=== PATIENT | female | born 1940 | race Caucasian/White ===

== ENCOUNTER 2024-05-05 23:53 | Observation (INO) | payer OTHER, SELFPAY ==
[2024-05-05 20:38] VITALS: BP 133/55; BMI 24.5
[2024-05-05 20:39] VITALS: BP 133/55
[2024-05-05 21:00] VITALS: BP 117/54
[2024-05-05 21:11] LABS: % Basophils 0.3 % (0-2); % Eosinophils 3.3 % (0-6); % Immature Granulocytes 0.3 % (0-0.5); % Monocytes 11.7 % (1.7-9.3); % Neutrophils 61.4 % (42.2-75.2); Absolute Eosinophils 0.2 10^3/uL (0-0.7); Absolute Lymphocytes 1.3 10^3/uL (1.2-3.4); Absolute Monocytes 0.7 10^3/uL (0.1-0.6); Absolute Neutrophils 3.5 10^3/uL (1.4-6.5); Hemoglobin 13.1 g/dL (12.0-16.0); Mean Corp Hgb Conc. 32.8 g/dL (33.0-37.0); Mean Corpuscular Hgb 30.9 pg (27.0-31.0); Mean Corpuscular Volume 94.3 fL (81.0-99.0); Mean Platelet Volume 10.5 fL (7.4-10.4); Nucleated Red Blood Cells % 0 %; Platelet Count 191 10^3/uL (130-400); Red Blood Cell Count 4.24 10^6/uL (4.20-5.40); Red Cell Dist. Width 12.2 % (11.5-14.5); White Blood Cell Count 5.7 10^3/uL (4.8-10.8)
[2024-05-05 21:26] LABS: ALT (SGPT) 13 U/L (0-35); AST (SGOT) 20 U/L (14-36); Albumin 4.2 g/dl (3.5-5.0); Alkaline Phosphatase 66 U/L (38-126); Blood Urea Nitrogen 19 mg/dl (7-17); Calcium 9.6 mg/dl (8.4-10.2); Carbon Dioxide 29 mmol/L (22-30); Chloride 103 mmol/L (98-107); Estimated Creatinine Clearance 45 ml/min; Glucose 109 mg/dl (70-99); Potassium 4.2 mmol/L (3.5-5.1); Sodium 142 mmol/L (135-145); Total Bilirubin 0.5 mg/dl (0.2-1.3); Total Protein 6.6 g/dl (6.3-8.2); eGFR > 60.00
[2024-05-05 22:00] VITALS: BP 121/46
--- NOTE | 2024-05-05 22:43 | ED.GENMED ---
History of Present Illness
General
Chief Complaint: Weakness
Source: patient
Time Seen by Provider: 05/05/24 21:51
History of Present Illness
History of Present Illness:
83-year-old female with past medical history of hypertension, hyperlipidemia, GERD, previous TIA presenting to the emergency department for evaluation of generalized weakness which she reports started this evening stating she was attempting to walk
from her kitchen to the living room and felt as if she was going to fall but notes she did not experience a fall. Patient notes she was concerned because a few years ago she had a significant fall which result with her being on the ground for 4
days and 4 nights until she was ultimately found and required hospitalization. Patient notes that she often uses a walker or assistive device when she is out of the house but states that normally she does not need this while in her apartment.
Patient denies any fevers or infectious symptoms but does state she has had a little bit of urinary frequency over the last couple of days. Patient denies any focal symptoms
Past History
Past History
ED Past Medical History: Cancer (squamous cell carcinoma 2020), GERD, HTN, Hypercholesterolemia, Psychiatric (Gen anxiety D/O) and Other (TMJ syndrome, MVP, Emphysema, Osteoarthritis)
ED Past Surgical History: Appendectomy, Gynecological (Hysterectomy, bilateral tubal ligation) and Other (Multiple abdominal surgeries, root canal 2019)
Patient has exhibited threatening behavior?: No
PSI?: No
Social History
Tobacco: Non-smoker
Alcohol: None
Drug: None
Personal:
Living: alone
Family History
Family History: Other (reviewed and non-contributory)
Review of Systems
Review of Systems
All Other Systems: ROS reviewed and negative except as documented in HPI and ROS
Phy Exam
Physical Exam
Physical Exam:
GENERAL: Alert , in no apparent distress
HEAD: NCAT
EYE: clear conjunctiva
NECK: Supple
ENT: mmm.
CARDIAC: Regular rate and rhythm .
LUNGS: Clear breath sounds bilaterally, no acute respiratory distress, no wheezes/rales/rhonchi
ABDOMEN: Soft, without focal tenderness, no r/g, no cvat
NEUROLOGICAL: Alert and oriented
SKIN: Warm and dry, skin intact.
MUSCULOSKELETAL: No edema, well perfused. Patient having a difficult time holding both legs up off of the bed and when assisted and holding leg up patient's legs fall down to the bed immediately on bilateral sides
PSYCH: Normal and appropriate interaction.
Scores
Heart Failure Risk
Heart Failure Risk Score: Not Applicable
Heart Score for Chest Pain Patients
STEMI patient?: Not applicable
Withdrawal Assessment of Alcohol
Withdrawal Assessment Completed?: Not applicable
Course
Orders/Labs/Results
Orders:
Orders
05/05/24 20:54
Complete Blood Count/With Diff Urgent
Comprehensive Metabolic Panel Urgent
05/05/24 21:58
Electrocardiogram (*1) Urgent
Reason for Study: Fatigue / Weakness
EKG- Treatment ONCE
Urinalysis Reflex To Culture Urgent
05/05/24 23:52
COVID-19 Antigen Urgent
Source: Nasal Swab
Influenza A+B Rapid Molecular Urgent
TONYA Source: Nasal Swab
Specimen Description:
05/05/24 23:53
Admit/Transfer Patient As Directed
Co-Sign Provider:
Level of Care: Observation services
Assign to:: Telemetry
Physician / Group: Mendoza
Diagnosis: Weakness, Ambulatory Dysfunction
Reason for Telemetry: CVA/TIA
Date to Stop Telemetry: 05/08/24
Time to Stop Telemetry: 11:00
PRN Pain Medication Management As Directed
May give lesser potent ordered pain med per pt: Yes
preference::
Protocol:: Medication orders for pain may be administered in a
manner that supports deferring to patient preference
when the pt is:
- Requesting an ordered lesser potent pain medication.
Least to most potent pain medications are defined
as: acetaminophen < NSAID < tramadol < opioids
(morphine, oxycodone, hydromorphone).
- Requesting a lesser dose of the same medication IF
ORDERED.
- Requesting a less intrusive route of administration
if both routes are prescribed by the provider (PO <
IV).
05/05/24 23:54
Code Status As Directed
Resuscitation Status: Do not resuscitate
Reached after discussion with pt or family/Healthcare POA: Yes
05/05/24 23:55
DNR Bracelet Application ONCE
05/08/24 11:00
DC Protocol for Telemetry ONCE
Abnormal Lab Results
05/05/24
20:54
MCHC 32.8 L g/dL
(33.0-37.0)
MPV 10.5 H fL
(7.4-10.4)
Absolute Monos (auto) 0.7 H 10^3/uL
(0.1-0.6)
Monocytes % 11.7 H %
(1.7-9.3)
BUN 19 H mg/dl
(7-17)
Glucose 109 H mg/dl
(70-99)
05/05/24 20:54
05/05/24 20:54
Vital Signs
Initial and Last Documented VS:
Initial Vital Signs
Temp Pulse Resp BP Pulse Ox
99.1 F 78 18 133/55 95
05/05/24 20:38 05/05/24 20:38 05/05/24 20:38 05/05/24 20:38 05/05/24 20:38
Last Documented Vital Signs
Temp Pulse Resp BP Pulse Ox
99.1 F 77 16 110/42 98
05/05/24 20:38 05/05/24 23:45 05/05/24 23:15 05/05/24 23:00 05/05/24 23:45
MDM/Problems Addressed
Differential Diagnosis Includes:
Urinary tract infection, deconditioning, electrolyte derangement, anemia, given bilateral nature of symptoms I do not have any concern for an acute neurologic event
MDM/Problems Addressed:
83-year-old female presenting to the ER for evaluation of generalized weakness, had a near fall but patient states she never did fall. Lives on her own. Hemodynamically patient is stable. Labs, urine and EKG ordered. At present time patient is
unable to get up out of bed and stand on her own. Given that she lives on her own and is a fall risk she may require admission for PT and possible rehab placement.
*Pulse Oximetry
Patient hypoxic: no
*Critical Care Note
Total Time (30-74mins, 75-104mins- exclusive of procedures): Not Applicable
Data Reviewed
Review of Other/Old Records Reveals: Labs and Records
Patient Management
Social determinants of health affecting care: Living situation and Poor social support
Discussion with other providers: Hospitalist
Escalation/DeEscalation of care consider admission/obs:
Patient unable to get up out of bed on her own. Given that she lives by herself, has had significant falls in the past and unable to ambulate here I do not feel comfortable sending the patient home. Will admit for further evaluation, anticipate
physical therapy consult and possibly case management. Patient may require rehab facility until able to ambulate at her baseline.
ED Attending Note
-
Portions of this chart may have been created with voice recognition software.� Occasional wrong word or��sound alike� substitutions may have occurred due to the inherent limitations of voice recognition software.
Discharge Plan
Departure
Patient Disposition: Admit
Date of Disposition: 05/05/24
Time of Disposition: 23:20
Presentation/result/management discussed w/ accepting MD/DO: Hospitalist
Discharge Problem:
Generalized weakness
Prescriptions:
No Action
famotidine 40 MG tablet
40 mg PO HS Qty: 0 0RF
Rx Instructions:
One tab by mouth at bedtime daily.
ferrous sulfate [FeroSul] 325 MG tablet
325 mg PO DAILY
multivitamin with folic acid [Tab-A-Nathaniel] 1 TABLET tablet
1 tab PO DAILY
[place]-3 Plus Vitamin D3 1 EACH capsule,delayed release(DR/EC)
1 ea PO BID
aspirin 81 MG tablet,delayed release (DR/EC)
81 mg PO HS Qty: 0 0RF
Rx Instructions:
One tab by mouth daily.
metoprolol tartrate 50 MG tablet
50 mg PO HS Qty: 0 0RF
Rx Instructions:
One tab by mouth every evening.
acetaminophen 650 mg Tablet Extended Release
650 mg PO BID
omeprazole 40 MG capsule,delayed release(DR/EC)
40 mg PO BID
Referrals:
Matias Suarez MD [Family Provider] -
Interventions
Interventions:
*Risk Screen - Suicide Last Done: 05/05/24 20:38
*General Assessment Last Done: 05/05/24 20:38
*Neglect/Abuse Screening Last Done: 05/05/24 20:38
ED- Fall Risk Assessment Last Done: 05/05/24 20:51
*ED COVID-19 Vaccine History Last Done: 05/05/24 20:49
ED- Cardiac Assessment Last Done: 05/05/24 20:49
ED- Neurological Assessment Last Done: 05/05/24 20:49
ED- Pulmonary Assessment Last Done: 05/05/24 20:49
Discharge Date and Time
Print Language: GAMBIAN
[2024-05-05 23:00] VITALS: BP 110/42
[2024-05-06] VITALS (11 sets, daily range): BP systolic 90–166; BP diastolic 50–87; PULSE 75–121; BMI 25.8
--- NOTE | 2024-05-06 00:04 | HPS.HSE ---
Family Physician
-
Family Physician: Matias Suarez
Chief Complaint
-
Weakness
History of Present Illness
Patient is an 83y F with PMH significant for hypertension, COPD and depression who presents to ED complaining of weakness. Patient states that she had a significant fall about one year ago. She was hospitalized here at that time and then
subsequently went to SNF. Patient notes that she has had continued gait abnormality since that time. She describes episodes of knees and ankles 'giving out'. She denies any actual fall, injury or trauma. Patient notes that she has lost about 100
lbs in the past year. She states that she has very little appetite. She denies any associated symptoms such as fevers / chills, sore throat, difficulty swallowing, N/V/D, etc.
Patient states that she typically sleeps for most of the day and is generally quite inactive.
Patient off-handedly states that she is not able to cut her food up due to RUE weakness. She states that this has been present for about 2 weeks or so. She also noted weakness in the R > L LE and notes that she manually moves her legs in bed when
rolling over / repositioning.
Today, patient became very concerned that she would suffer another fall. She states that she was completely unable to get out of bed.
Medical History
Past Medical History
Past Medical History: Reports Other
Additional Past Medical History:
Hypertension
COPD
Anxiety / Depression
GERD / Hiatal Hernia
Past Surgical History: Reports Other
Additional Past Surgical History:
MARCUS / BSO
Appendectomy
Skin Cancer Excision
Ex Lap
Social History
Tobacco: Non-smoker
Alcohol: None
Drug: None
Living: Other ([facility])
Family History
Family History: Not pertinent
Allergies / Home Medications
Allergies reflects when Allergies were last updated in [facility].
Home Medications with original date entered in [facility]
Allergy/Medication List:
Allergies
Patient reports allergy to 'inhalers' and notes multiple instances of hallucinations with inhaled medications via MDI.
States that she can take inhaled meds 'but not through the inhaler'.
Suspect allergy is to anticholinergic component - but not verified.
Allergy/AdvReac Type Severity Reaction Status Date / Time
cat dander Allergy Unknown Unknown Verified 05/05/24 20:35
levofloxacin [From Levaquin] Allergy LOW Verified 05/05/24 20:35
BP,FAST
HR,DIZZINESS
spironolactone Allergy Unknown Verified 05/05/24 20:35
anesthesia med Allergy LOW Uncoded 05/05/24 20:35
BP,FAST
HR,DIZZINESS
Home Medications
famotidine 40 mg tablet 40 mg PO HS #0 tabs 08/24/13
ferrous sulfate 325 mg (65 mg iron) tablet (FeroSul) 325 mg PO DAILY Supplement 07/04/21
multivitamin with folic acid 400 mcg tablet (Tab-A-Nathaniel) 1 tab PO DAILY Supplement 07/04/21
omega-3 150 ra-cjh-kdg-fish oil 500 mg-D3 200 unit capsule,delayed rel ([place]-3 Plus Vitamin D3) 1 ea PO BID Supplement 07/04/21
aspirin 81 mg tablet,delayed release 81 mg PO HS Blood clot prevention/tx ##0 07/08/21
metoprolol tartrate 50 mg tablet 50 mg PO HS Heart disease/condition ##0 07/08/21
acetaminophen 650 mg tablet,extended release 650 mg PO BID Pain 12/26/22
omeprazole 40 mg capsule,delayed release 40 mg PO DAILY 12/26/22
Review of Systems
-
History Source: Patient
A 12 point ROS was completed and negative except as noted: Yes
Constitutional: Reports Weight Loss and Fatigue; Denies Fever or Chills
EENT: Denies Sore Throat
Respiratory: Denies Cough or Trouble Breathing
Cardiac: Denies Chest Pain or Palpitations
Abdomen/GI: Reports Anorexia; Denies Abdominal Pain, Nausea, Vomiting, Diarrhea, Bloody Stools or Black Stools
: Reports Frequency; Denies Dysuria, Flank Pain or Incontinence
Musculoskeletal: Denies Joint Pain, Muscle Pain or Edema
Neurological: Reports Weakness; Denies Dizzy, Headache or Numbness
Psych: Denies Depression or Anxiety
Physical Exam
Vital Signs
Vital Signs
Temp Pulse Resp BP Pulse Ox
99.1 F 77 16 110/42 98
05/05/24 20:38 05/05/24 23:45 05/05/24 23:15 05/05/24 23:00 05/05/24 23:45
Physical Exam
General: Other (83y F in no acute distress.)
HEENT: Moist mucous membranes and PERRLA
Respiratory: Clear; No Wheezes, Rales or Rhonchi
Cardiac: S1/S2 and Regular Rhythm; No Murmur
GI: Soft, Non Tender, Non Distended and Normal Bowel Sounds
Musculoskeletal: No Clubbing, No Cyanosis and No Edema
Neuro: AO x 3 and Other (Proximal muscle weakness in b/l LEs with no significant asymmetry. Minimal SLR capability. No evident sensory deficits. No apparent RUE weakness despite report.)
Laboratory Results
-
05/05/24 20:54
05/05/24 20:54
Laboratory Results
Total Bilirubin 0.5 mg/dl (0.2-1.3) 05/05/24 20:54
AST 20 U/L (14-36) 05/05/24 20:54
ALT 13 U/L (0-35) 05/05/24 20:54
Alkaline Phosphatase 66 U/L (38-126) 05/05/24 20:54
Impression/Plan
-
A/P: Patient is an 83y F with PMH significant for hypertension, GERD and COPD who presents to ED complaining of weakness / gait dysfunction.
Weakness
Ambulatory Dysfunction
- Observe overnight for further evaluation and treatment.
- Symptoms seem quite long-standing with instability / gait issues x 1 year.
- Patient reports newer R sided weakness in the past few weeks.
- Check MR brain to rule out subacute CVA (no urgent / acute symptoms).
- PT / OT evaluations.
- Neurology evaluation for additional recommendations.
- Check ESR, CPK, etc.
Weight Loss
- Patient reports 100 lbs weight loss over the past year with decreased appetite.
- Concerning for underlying process.
- Check TFTs.
- Check CXR.
- Nutrition / dietary evaluation.
- Patient states that she was up to date with all routine cancer screenings prior to age 81.
Benign Hypertension
- Stable. Continue metoprolol with holding parameters.
COPD without Acute Exacerbation
- Stable. Not on any maintenance medications.
- Albuterol (nebs only) PRN.
- Follow for any new symptoms.
GERD / Hiatal Hernia
- Stable. Continue acid-suppression regimen.
DVT Prophylaxis: SCDs
Code Status: DNR
[2024-05-06 00:17] LABS: COVID-19 Antigen Negative (Negative)
[2024-05-06 02:48] LABS: Creatine Phosphokinase 33 U/L (30-135)
[2024-05-06 03:22] LABS: TSH Reflex To Free T4 1.14 uIU/ml (0.47-4.68)
[2024-05-06 03:57] LABS: Erythrocyte Sed Rate 18 mm/hour (0-20)
--- NOTE | 2024-05-06 04:49 | PTCARENOTE ---
0200 Received patient from ED via stretcher w/ belongings. Patient admitted for weakness, ambulatory dysfunction. Observation status. Telemetry order> NSR on monitor. VSS> afebrile, HR 75, RR 18, BP 138/87, pox 98% room air. No c/o pain. AAOx2-3
(time), [place] PASS. Patient states she is forgetful at times. Neuro checks Q4H ordered. patient is weak in her LEs; c/o numbness in her legs/feet 'for the past few months' NIH 0. Unable to obtain orthostatic VS d/t weakness. PT/OT ordered. Patient lives
alone at [facility], utilizes a RW. Patient states she has lost a significant amount of weight in the past year. Dietary ordered. Abd soft, non-tender. Last BM was Tuesday.
PMH and medications reviewed by this RN and patient. Plan of care discussed. Patient ordered an MRI brain and CR chest.
[2024-05-06 07:51] LABS: % Basophils 0.8 % (0-2); % Eosinophils 4.1 % (0-6); % Immature Granulocytes 0.2 % (0-0.5); % Lymphocytes 30.9 % (20.5-51.1); % Monocytes 11.3 % (1.7-9.3); % Neutrophils 52.7 % (42.2-75.2); Absolute Eosinophils 0.2 10^3/uL (0-0.7); Absolute Lymphocytes 1.5 10^3/uL (1.2-3.4); Absolute Monocytes 0.6 10^3/uL (0.1-0.6); Absolute Neutrophils 2.6 10^3/uL (1.4-6.5); Hematocrit 39.8 % (37.0-47.0); Mean Corp Hgb Conc. 32.7 g/dL (33.0-37.0); Mean Corpuscular Hgb 31.5 pg (27.0-31.0); Mean Corpuscular Volume 96.4 fL (81.0-99.0); Mean Platelet Volume 11.4 fL (7.4-10.4); Nucleated Red Blood Cells % 0 %; Platelet Count 181 10^3/uL (130-400); Red Blood Cell Count 4.13 10^6/uL (4.20-5.40); Red Cell Dist. Width 12.3 % (11.5-14.5); White Blood Cell Count 4.9 10^3/uL (4.8-10.8)
[2024-05-06 08:09] LABS: Blood Urea Nitrogen 20 mg/dl (7-17); Calcium 9.5 mg/dl (8.4-10.2); Carbon Dioxide 28 mmol/L (22-30); Chloride 105 mmol/L (98-107); Estimated Creatinine Clearance 50 ml/min; Glucose 96 mg/dl (70-99); HDL Cholesterol 50 mg/dl; LDL Cholesterol, Calculated 117 mg/dl; Sodium 142 mmol/L (135-145); Total Cholesterol 188 mg/dl (50-199); Triglyceride 105 mg/dl (10-149); Very Low Density Lipoprotein 21 mg/dl (0-30); eGFR > 60.00
[2024-05-06] MEDS: PROTONIX 40 MG PO (08:35)
[2024-05-06] MEDS: THERAGRAN 1 TABLET PO (08:35)
--- NOTE | 2024-05-06 09:15 | CON.NEURO ---
Consultation
Order
Date of Consultation: 05/06/24
Requesting Provider: Qasim Donaldson DO
Reason for Consult: Right hand weakness.
Neurology Consultation Note.
HPI: This is an 83-year-old RH woman who presented to [facility] on 05/05/2024 with 2 weeks of right hand weakness.
According to the patient she has had progressive change in gait (shuffling, imbalance as well as stiffness with associated bradykinesia's and hand tremor over the last 1-1/2 years.
Ms. Dunaway has had difficulties with dressing, cutting food and handling utensils as well as loss of appetite leading to 100 pound weight loss over the last year. There is admits to intermittent dysphagia to food and sialorrhea.
She has had intermittent visual hallucinations and denied having anosmia or ageusia. Ms. Dunaway lives alone and manages her medications independently but receives assistance with food shopping and driving.
ER VS: 133/55, 78, afebrile, 98% on room air
EKG:NSR, QTc Int : 467 ms
PDMP: Alprazolam 0.25 Mg 60 tablets filled in on 12/13/2023.
Labs: Glucose�109, normal CK, Na, WBCs, creatinine, TSH, protein, LDL�117, negative COVID.
Brain MRI without conner (12/29/2022)�chronic right cerebellar hemisphere infarct, right [id number] mm choroidal fissure cyst, subcortical white matter disease, generalized atrophy,
Cervical CT(12/26/2022) no significant stenosis
PMH: HTN, CHF, COPD, ambulatory dysfunction, hiatal hernia, GERD MDD, CONNER
PSH: Bilateral cataract surgery, appendectomy, hysterectomy, exploratory laparotomy
SH: lives in alone in independent living (senior housing); ambulates with a walker, does not drive, takes medications independently, retired medical lab scientist, no history of excessive alcohol use has 3 children
FH: Father�autism, mother�developed dementia in her late 70s.
All: Spironolactone, Levaquin
ROS:Constitutional: Positive for 100 pound weight loss over the last year.
HENT: Negative for ear pain, hearing loss, tinnitus and trouble swallowing.
Eyes: Negative. Negative for photophobia, pain and visual disturbance.
Respiratory: Negative for cough, choking and shortness of breath.
Cardiovascular: Positive for lightheadedness.
Gastrointestinal: Positive for poor appetite, intermittent sialorrhea.
Endocrine: Negative. Negative for cold intolerance.
Genitourinary: Positive for urinary urgency, incontinence (wears pads)
Musculoskeletal: Negative for back pain, gait problem, neck pain and neck stiffness.
Skin: Negative for rash.
Allergic/Immunologic: Negative. Negative for immunocompromised state.
Neurological: Negative for frequent akinesia, imbalance, hand tremor
Psychiatric/Behavioral: Positive for visual hallucinations
General: Slim, masked facies.
Cardio: Regular rate and rhythm . Extremities are without cyanosis or edema.
Neuro:
Mental Status: Alert, oriented to person, place, and date. Preserved attention and impaired comprehension. Able to do serial 7s. Nonfluent. Follows complex requests across midline. Delayed recall�impaired.
Cranial Nerves: Pupils are equally round, surgical. EOMs full, except of upper and downgaze.. Visual roberts full to confrontation. No ptosis. No nystagmus. V1-V3 intact to light touch and pinprick bilaterally, symmetric. Face symmetric.
Impaired hearing AU. The palate elevated well. SCMs and traps 5/5. Tongue midline. No dysarthria. Mild dysphonia.
Motor: Increased motor tone in upper and lower extremities. All limbs are antigravity symmetrically purposeful.
Reflexes: 3+ in upper extremities, limited exam lower extremities. Grasp present bilateral.
Sensory: Absent vibration at the toes, ankles and preserved at the knees.
Coordination: Normal fine finger movements. No dysmetria, mild action hand tremor.
Gait: deferred
Special tests�positive, micrographia.
Assessment and Plan:
I. Parkinsonism.
II. Encephalopathy, likely mixed(vascular, neurodegenerative).
III. Distal symmetric large fiber polyneuropathy.
IV. Chronic right cerebellar hemisphere infarct
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
-Fall precautions
-Please obtain orthostatic vital signs
-Avoid dopamine blocking agents
-PT, OT
-Sinemet trial
-Continue aspirin 81 mg once a day for stroke prophylaxis.
-LDL goal<100
-Check vitamin B12, folate, thiamine, SPEP.
-OP [place] scan
-Follow-up brain MRI report.
-DVT prophylaxis
I personally reviewed all radiology and labs along with past medical records pertinent to current medical problems. Total time spent in patient care is 60 minutes.
Thank you for allowing us to participate in the care of this patient. We will continue to follow. Please do not hesitate to contact us with any questions or concerns.
Subjective/Objective
Subjective Data
Date of Service: May 06, 2024
Objective Data
Vital Signs
Temp Pulse Resp BP Pulse Ox
36.7 C 77 18 166/82 98
05/06/24 07:00 05/06/24 07:00 05/06/24 07:00 05/06/24 07:00 05/06/24 07:00
Lab Results
05/06/24 06:00
05/06/24 06:00
Sodium Cancelled 05/06/24 06:00
Potassium Cancelled 05/06/24 06:00
BUN Cancelled 05/06/24 06:00
Glucose Cancelled 05/06/24 06:00
Calcium Cancelled 05/06/24 06:00
LDL Cholesterol, Calc Cancelled 05/06/24 06:00
Patient Allergies
cat dander Allergy (Unknown, Verified 05/05/24 20:35)
Unknown
levofloxacin [From Levaquin] Allergy (Verified 05/05/24 20:35)
LOW BP,FAST HR,DIZZINESS
spironolactone Allergy (Verified 05/05/24 20:35)
Unknown
anesthesia med Allergy (Uncoded 05/05/24 20:35)
LOW BP,FAST HR,DIZZINESS
Medications
-
Active Medications
Generic Name Dose Route Start Last Admin
Trade Name Freq PRN Reason Stop Dose Admin
Acetaminophen 650 mg 05/06/24 01:58
Acetaminophen 325 Mg Tablet PO 06/03/24 01:57
Q4HPRN PRN
Mild Pain / Temp > 101
Albuterol Sulfate 2.5 mg 05/06/24 01:58
Albuterol Nebs 2.5 Mg/3 Ml Ampul INH
R Q4HPRN PRN
SOB
Protocol
Aspirin 81 mg 05/06/24 22:00
Aspirin 81 Mg (Enteric Coated) Tablet PO 06/03/24 21:59
HS VANESSA
Famotidine 40 mg 05/06/24 22:00
Famotidine 40 Mg Tablet PO 06/03/24 21:59
HS VANESSA
Metoprolol Tartrate 50 mg 05/06/24 22:00
Metoprolol 50 Mg Regular Release Tablet PO 06/03/24 21:59
HS VANESSA
Multivitamins Therapeutic 1 tablet 05/06/24 08:00 05/06/24 08:35
Multivitamin Tablet PO 06/03/24 07:59 1 tablet
DAILY VANESSA Administration
Pantoprazole Sodium 40 mg 05/06/24 08:00 05/06/24 08:35
Pantoprazole 40 Mg Delayed Release Tablet PO 06/03/24 07:59 40 mg
DAILY VANESSA Administration
Home Medications
�Medication �Instructions �Recorded
famotidine 40 mg tablet 40 mg PO HS #0 tabs 08/24/13
ferrous sulfate 325 mg (65 mg 325 mg PO DAILY Supplement 07/04/21
iron) tablet (FeroSul)
multivitamin with folic acid 400 1 tab PO DAILY Supplement 07/04/21
mcg tablet (Tab-A-Nathaniel)
omega-3 150 ii-uvb-zjn-fish oil 1 ea PO BID Supplement 07/04/21
500 mg-D3 200 unit capsule,delayed
rel ([place]-3 Plus Vitamin D3)
aspirin 81 mg tablet,delayed 81 mg PO HS Blood clot 07/08/21
release prevention/tx ##0
metoprolol tartrate 50 mg tablet 50 mg PO HS Heart 07/08/21
disease/condition ##0
acetaminophen 650 mg 650 mg PO BID Pain 12/26/22
tablet,extended release
omeprazole 40 mg capsule,delayed 40 mg PO DAILY 12/26/22
release
Vital Signs and Labs
-
Vital Signs and Labs:
Vital Signs
Temp Pulse Resp BP Pulse Ox
36.7 C 77 18 166/82 98
05/06/24 07:00 05/06/24 07:00 05/06/24 07:00 05/06/24 07:00 05/06/24 08:35
Lab Results
05/06/24 06:00
05/06/24 06:00
Sodium Cancelled 05/06/24 06:00
Potassium Cancelled 05/06/24 06:00
BUN Cancelled 05/06/24 06:00
Glucose Cancelled 05/06/24 06:00
Calcium Cancelled 05/06/24 06:00
LDL Cholesterol, Calc Cancelled 05/06/24 06:00
Medications
-
Medications:
Generic Name Dose Route Start Last Admin
Trade Name Freq PRN Reason Stop Dose Admin
Acetaminophen 650 mg 05/06/24 01:58
Acetaminophen 325 Mg Tablet PO 06/03/24 01:57
Q4HPRN PRN
Mild Pain / Temp > 101
Albuterol Sulfate 2.5 mg 05/06/24 01:58
Albuterol Nebs 2.5 Mg/3 Ml Ampul INH
R Q4HPRN PRN
SOB
Protocol
Aspirin 81 mg 05/06/24 22:00
Aspirin 81 Mg (Enteric Coated) Tablet PO 06/03/24 21:59
HS VANESSA
Famotidine 40 mg 05/06/24 22:00
Famotidine 40 Mg Tablet PO 06/03/24 21:59
HS VANESSA
Metoprolol Tartrate 50 mg 05/06/24 22:00
Metoprolol 50 Mg Regular Release Tablet PO 06/03/24 21:59
HS VANESSA
Multivitamins Therapeutic 1 tablet 05/06/24 08:00 05/06/24 08:35
Multivitamin Tablet PO 06/03/24 07:59 1 tablet
DAILY VANESSA Administration
Pantoprazole Sodium 40 mg 05/06/24 08:00 05/06/24 08:35
Pantoprazole 40 Mg Delayed Release Tablet PO 06/03/24 07:59 40 mg
DAILY VANESSA Administration
Home Medications
-
Home Medications
famotidine 40 mg tablet 40 mg PO HS #0 tabs 08/24/13
ferrous sulfate 325 mg (65 mg iron) tablet (FeroSul) 325 mg PO DAILY Supplement 07/04/21
multivitamin with folic acid 400 mcg tablet (Tab-A-Nathaniel) 1 tab PO DAILY Supplement 07/04/21
omega-3 150 ri-bsz-xri-fish oil 500 mg-D3 200 unit capsule,delayed rel ([place]-3 Plus Vitamin D3) 1 ea PO BID Supplement 07/04/21
aspirin 81 mg tablet,delayed release 81 mg PO HS Blood clot prevention/tx ##0 07/08/21
metoprolol tartrate 50 mg tablet 50 mg PO HS Heart disease/condition ##0 07/08/21
acetaminophen 650 mg tablet,extended release 650 mg PO BID Pain 12/26/22
omeprazole 40 mg capsule,delayed release 40 mg PO DAILY 12/26/22
[2024-05-06 10:30] LABS: Urine Albumin Negative (Neg - Trace); Urine Bilirubin Negative (Negative); Urine Character Clear (Clear); Urine Color Yellow; Urine Glucose Negative (Negative); Urine Ketone Negative (Negative); Urine Leukocyte Negative (Negative); Urine Nitrite Negative (Negative); Urine Occult Blood Negative (Negative); Urine Urobilinogen Negative (Neg - 1+)
[2024-05-06 13:56] LABS: Folate > 20.0 ng/ml (2.76-20); Vitamin B12 636 pg/ml (239-931)
[2024-05-06] MEDS: SINEMET 25-100 1 TABLET PO ×2 (15:45→21:18)
--- NOTE | 2024-05-06 16:12 | CM ---
or manager reviewed patient's chart and met with patient and patient was admitted under OBS, PARSONS letter provided to patient and signed and placed on chart. Patient lives alone at [facility] on 5th floor, patient is independent with
adl's and ambulation, patient occasionally uses a cane or walker.
PCP: Dr. Suarez
Pharmacy: [facility]
Plan; Needs PT/OT evaluations to assist with discharge planning.
[2024-05-06] MEDS: ASPIR LOW (ENTERIC COATED) 81 MG PO (21:17)
[2024-05-06] MEDS: LOPRESSOR 50 MG PO (21:17)
[2024-05-06] MEDS: PEPCID 40 MG PO (21:17)
[2024-05-07] VITALS (8 sets, daily range): BP systolic 72–146; BP diastolic 48–72; PULSE 71–89; BMI 26.2
[2024-05-07] MEDS: SINEMET 25-100 1 TABLET PO ×3 (08:56→21:24)
[2024-05-07] MEDS: PROTONIX 40 MG PO (08:56)
[2024-05-07] MEDS: THERAGRAN 1 TABLET PO (08:56)
--- NOTE | 2024-05-07 12:22 | W.PN.NEURO.1 ---
Today's Communication / Plan
-
.
Subjective/Objective
Subjective Data
Date of Service: May 07, 2024
Neurology follow-up note
Ms. Busch endorses ongoing right hand weakness. She tolerates Sinemet well. No change in visual hallucinations since Sinemet therapy started. Brain MRI showed no acute infarcts.
PMH: HTN, CHF, COPD, ambulatory dysfunction, hiatal hernia, GERD MDD, CONNER
PSH: Bilateral cataract surgery, appendectomy, hysterectomy, exploratory laparotomy
SH: lives in alone in independent living (senior housing); ambulates with a walker, does not drive, takes medications independently, retired medical data entry clerk, no history of excessive alcohol use has 3 children
FH: Father�autism, mother�developed dementia in her late 70s.
All: Spironolactone, Levaquin
ROS:Constitutional: Positive for 100 pound weight loss over the last year.
HENT: Negative for ear pain, hearing loss, tinnitus and trouble swallowing.
Eyes: Negative. Negative for photophobia, pain and visual disturbance.
Respiratory: Negative for cough, choking and shortness of breath.
Cardiovascular: Positive for lightheadedness.
Gastrointestinal: Positive for poor appetite, intermittent sialorrhea.
Endocrine: Negative. Negative for cold intolerance.
Genitourinary: Positive for urinary urgency, incontinence (wears pads)
Musculoskeletal: Negative for back pain, gait problem, neck pain and neck stiffness.
Skin: Negative for rash.
Allergic/Immunologic: Negative. Negative for immunocompromised state.
Neurological: Negative for frequent akinesia, imbalance, hand tremor
Psychiatric/Behavioral: Positive for visual hallucinations
General: Slim, masked facies.
Cardio: Regular rate and rhythm . Extremities are without cyanosis or edema.
Neuro:
Mental Status: Alert, oriented to person, place, and date. Preserved attention and impaired comprehension. Able to do serial 7s. Nonfluent. Follows complex requests across midline. Delayed recall�impaired.
Cranial Nerves: Pupils are equally round, surgical. EOMs full, except of upper and downgaze.. Visual roberts full to confrontation. No ptosis. No nystagmus. V1-V3 intact to light touch and pinprick bilaterally, symmetric. Face symmetric.
Impaired hearing AU. The palate elevated well. SCMs and traps 5/5. Tongue midline. No dysarthria. Mild dysphonia.
Motor: Increased motor tone in upper and lower extremities. All limbs are antigravity symmetrically purposeful.
Reflexes: 3+ in upper extremities, limited exam lower extremities. Grasp present bilateral.
Sensory: Absent vibration at the toes, ankles and preserved at the knees.
Coordination: Normal fine finger movements. No dysmetria, mild action hand tremor.
Gait: deferred
Special tests�positive, micrographia.
Assessment and Plan:
I. 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
II. Encephalopathy, likely mixed(vascular, neurodegenerative).
III. Distal symmetric large fiber polyneuropathy.
IV. Chronic right cerebellar hemisphere infarct
V. Right [id number] mm choroidal fissure cyst
-Fall precautions
-Avoid dopamine blocking agents
-PT, OT
-Continue Sinemet 24/101 tablet 3 times daily
-Continue aspirin 81 mg once a day for stroke prophylaxis.
-LDL goal<100
-Check vitamin B12, folate, thiamine, SPEP.
-OP [place] scan
-DVT prophylaxis
-Outpatient neurology follow-up in 1-2 weeks.
I personally reviewed all radiology and labs along with past medical records pertinent to current medical problems. Total time spent in patient care is 40 minutes.
Thank you for allowing us to participate in the care of this patient. Please do not hesitate to contact us with any questions or concerns.
Objective Data
Vital Signs
Temp Pulse Resp BP Pulse Ox
36.3 C 67 18 117/59 95
05/07/24 11:43 05/07/24 11:43 05/07/24 11:43 05/07/24 11:43 05/07/24 11:43
Lab Results
05/06/24 06:00
05/06/24 06:00
Sodium Cancelled 05/06/24 06:00
Potassium Cancelled 05/06/24 06:00
BUN Cancelled 05/06/24 06:00
Glucose Cancelled 05/06/24 06:00
Calcium Cancelled 05/06/24 06:00
LDL Cholesterol, Calc Cancelled 05/06/24 06:00
Whole Bld Vitamin B1 Cancelled 05/06/24 12:14
Vitamin B12 Cancelled 05/06/24 12:14
Patient Allergies
cat dander Allergy (Unknown, Verified 05/05/24 20:35)
Unknown
levofloxacin [From Levaquin] Allergy (Verified 05/05/24 20:35)
LOW BP,FAST HR,DIZZINESS
spironolactone Allergy (Verified 05/05/24 20:35)
Unknown
anesthesia med Allergy (Uncoded 05/05/24 20:35)
LOW BP,FAST HR,DIZZINESS
Vital Signs and Labs
-
Vital Signs and Labs:
Vital Signs
Temp Pulse Resp BP Pulse Ox
36.3 C 67 18 117/59 95
05/07/24 11:43 05/07/24 11:43 05/07/24 11:43 05/07/24 11:43 05/07/24 11:43
Lab Results
05/06/24 06:00
05/06/24 06:00
Sodium Cancelled 05/06/24 06:00
Potassium Cancelled 05/06/24 06:00
BUN Cancelled 05/06/24 06:00
Glucose Cancelled 05/06/24 06:00
Calcium Cancelled 05/06/24 06:00
LDL Cholesterol, Calc Cancelled 05/06/24 06:00
Whole Bld Vitamin B1 Cancelled 05/06/24 12:14
Vitamin B12 Cancelled 05/06/24 12:14
Medications
-
Medications:
Generic Name Dose Route Start Last Admin
Trade Name Freq PRN Reason Stop Dose Admin
Acetaminophen 650 mg 05/06/24 01:58
Acetaminophen 325 Mg Tablet PO 06/03/24 01:57
Q4HPRN PRN
Mild Pain / Temp > 101
Albuterol Sulfate 2.5 mg 05/06/24 01:58
Albuterol Nebs 2.5 Mg/3 Ml Ampul INH
R Q4HPRN PRN
SOB
Protocol
Aspirin 81 mg 05/06/24 22:00 05/06/24 21:17
Aspirin 81 Mg (Enteric Coated) Tablet PO 06/03/24 21:59 81 mg
HS VANESSA Administration
Carbidopa/Levodopa 1 tablet 05/06/24 16:00 05/07/24 08:56
Carbidopa (25 Mg)/Levodopa (100 Mg) Regular Release Tablet PO 06/03/24 15:59 1 tablet
TID VANESSA Administration
Famotidine 40 mg 05/06/24 22:00 05/06/24 21:17
Famotidine 40 Mg Tablet PO 06/03/24 21:59 40 mg
HS VANESSA Administration
Metoprolol Tartrate 50 mg 05/06/24 22:00 05/06/24 21:17
Metoprolol 50 Mg Regular Release Tablet PO 06/03/24 21:59 50 mg
HS VANESSA Administration
Multivitamins Therapeutic 1 tablet 05/06/24 08:00 05/07/24 08:56
Multivitamin Tablet PO 06/03/24 07:59 1 tablet
DAILY VANESSA Administration
Pantoprazole Sodium 40 mg 05/06/24 08:00 05/07/24 08:56
Pantoprazole 40 Mg Delayed Release Tablet PO 06/03/24 07:59 40 mg
DAILY VANESSA Administration
Home Medications
-
Home Medications
famotidine 40 mg tablet 40 mg PO HS #0 tabs 08/24/13
ferrous sulfate 325 mg (65 mg iron) tablet (FeroSul) 325 mg PO DAILY Supplement 07/04/21
multivitamin with folic acid 400 mcg tablet (Tab-A-Nathaniel) 1 tab PO DAILY Supplement 07/04/21
omega-3 150 on-uob-xlw-fish oil 500 mg-D3 200 unit capsule,delayed rel ([place]-3 Plus Vitamin D3) 1 ea PO BID Supplement 07/04/21
aspirin 81 mg tablet,delayed release 81 mg PO HS Blood clot prevention/tx ##0 07/08/21
metoprolol tartrate 50 mg tablet 50 mg PO HS Heart disease/condition ##0 07/08/21
acetaminophen 650 mg tablet,extended release 650 mg PO BID Pain 12/26/22
omeprazole 40 mg capsule,delayed release 40 mg PO DAILY 12/26/22
--- NOTE | 2024-05-07 13:40 | PTCARENOTE ---
Called into pt's room when pt was concerned about a woman coming into her room, pulling a sleeve off her arm and then this woman stuffed it into her pocket and left the room. Assured pt that no one had come into her room, but that I would keep an
eye out in case I did see someone come in. Dr. Bryant is aware pt is having hallucinations. Will continue to monitor.
--- NOTE | 2024-05-07 15:32 | W.PN.HOSP.TC ---
Today's Communication/Plan
-
Plan to discharge to SNF
Assessment / Plan
Assessment / Plan
Ambulatory dysfunction with hallucination
-Neurology concern for potential Lewy body dementia features of Parkinson's
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
-Started on Sinemet
-Continue PT OT
-Check B12 folate
-Outpatient neurology follow-up within 1 to 2 weeks
-Continue aspirin
COPD without exacerbation
-Stable
-Albuterol
GERD
-Continue Pepcid/PPI
ELLI
-Continue ferrous sulfate
Physical therapy/Occupational Therapy recommending SNF
-Case management consulted to begin disposition
--- She tells me that she has 2 children 1 that travels to [place] 3 weeks out of the year has 3 children and very busy that third daughter has a that has a heart transplant and is failing there is nothing for them to do her at this point now
going towards palliative
Anticipated Discharge: 24 - 48 hours
Subjective/Interval History
-
Date of Service: May 07, 2024
Seen and examined. No new complaints. No acute overnight events.
She tells me while she is at home she feels like she hallucinates and sees spiders and ants on the rocks. She steps on mom and hears some crunching. She calls offered children and they tell her there is nothing that you are hallucinating
Objective Data
-
Vital Signs:
Vital Signs
Temp Pulse Resp BP Pulse Ox
98.6 F 69 18 136/65 93
05/07/24 15:30 05/07/24 15:30 05/07/24 15:30 05/07/24 15:30 05/07/24 15:30
I&O
05/06/24 05/07/24 05/08/24
06:59 06:59 06:59
Intake Total 360 / 360
Balance 360 / 360
Physical Exam
-
General: Comfortable and Cachectic
HEENT: Normocephalic, Atraumatic and Moist Mucous Membranes
Respiratory: Clear to Auscultation
Cardiac: S1/S2
GI: Soft, Nontender, Nondistended and Normal Bowel Sounds
Musculoskeletal: No Clubbing and No Cyanosis
Skin: Warm and Dry
Neuro: Awake, Alert, Oriented and AO x 3
Psych: Calm
[2024-05-07] MEDS: ASPIR LOW (ENTERIC COATED) 81 MG PO (21:24)
[2024-05-07] MEDS: PEPCID 40 MG PO (21:26)
[2024-05-07] MEDS: LOPRESSOR PO (21:27)
[2024-05-08] VITALS (8 sets, daily range): BP systolic 105–141; BP diastolic 54–75; PULSE 76–97; O2SAT 95; BMI 23.5
[2024-05-08 08:09] LABS: Hematocrit 37.6 % (37.0-47.0); Hemoglobin 12.3 g/dL (12.0-16.0); Mean Corp Hgb Conc. 32.7 g/dL (33.0-37.0); Mean Corpuscular Hgb 31.5 pg (27.0-31.0); Mean Corpuscular Volume 96.2 fL (81.0-99.0); Mean Platelet Volume 10.7 fL (7.4-10.4); Platelet Count 178 10^3/uL (130-400); Red Blood Cell Count 3.91 10^6/uL (4.20-5.40); Red Cell Dist. Width 12.2 % (11.5-14.5)
[2024-05-08 08:57] LABS: Blood Urea Nitrogen 22 mg/dl (7-17); Calcium 9.2 mg/dl (8.4-10.2); Carbon Dioxide 29 mmol/L (22-30); Chloride 103 mmol/L (98-107); Estimated Creatinine Clearance 39 ml/min; Glucose 78 mg/dl (70-99); Potassium 4.1 mmol/L (3.5-5.1); Sodium 140 mmol/L (135-145); eGFR > 60.00
[2024-05-08] MEDS: PROTONIX 40 MG PO (08:57)
[2024-05-08] MEDS: SINEMET 25-100 1 TABLET PO ×3 (08:57→21:06)
[2024-05-08] MEDS: THERAGRAN 1 TABLET PO (08:57)
--- NOTE | 2024-05-08 11:29 | CM ---
CM reviewed chart, patient seen bedside. CM discussed PT recommendation of SNF, patient agreeable, reports she has been to rehab in the past, does not want to return to that facility. Per previous CM notes, patient discharged to [facility].
Patient worried facility will take her money, CM explained patient will return to [facility] after rehab, will not be a LTC resides and will only go to rehab for short term. Patient reports she has three children, would not like CM to call children
at this time. Patient agreeable to local referrals to facilities in area. Patient will require insurance auth. CM will continue to follow for all discharge planning needs.
Plan; SNF pending accepting facility, will require insurance auth.
--- NOTE | 2024-05-08 16:04 | W.PN.HOSP.TC ---
Today's Communication/Plan
-
pending dc to snf
Assessment / Plan
Assessment / Plan
Ambulatory dysfunction with hallucination
-Neurology concern for potential Lewy body dementia features of Parkinson's
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
-Started on Sinemet
-Continue PT OT
-Outpatient neurology follow-up within 1 to 2 weeks
-Continue aspirin
COPD without exacerbation
-Stable
-Albuterol
GERD
-Continue Pepcid/PPI
ELLI
-Continue ferrous sulfate
Physical therapy/Occupational Therapy recommending SNF
-Case management consulted to begin disposition
--- She tells me that she has 2 children 1 that travels to [place] 3 weeks out of the year has 3 children and very busy that third daughter has a that has a heart transplant and is failing there is nothing for them to do her at this point now
going towards palliative
Plan for DC to SNF
CM aware she is cleared
Anticipated Discharge: Within 24 hours
Subjective/Interval History
-
Date of Service: May 08, 2024
seen and examined
did not realize that breakfast had arrived
no new complaints
no ucte overnight events
Objective Data
-
Labs:
Laboratory Results
05/08/24
06:41
WBC 5.0
Hgb 12.3
Hct 37.6
Plt Count 178
Sodium 140
Potassium 4.1
Chloride 103
Carbon Dioxide 29
BUN 22 H
Creatinine 0.8
Glucose 78
Calcium 9.2
Vital Signs:
Vital Signs
Temp Pulse Resp BP Pulse Ox
98.4 F 85 18 136/72 98
05/08/24 15:40 05/08/24 15:40 05/08/24 15:40 05/08/24 15:40 05/08/24 15:40
I&O
05/07/24 05/08/24 05/09/24
06:59 06:59 06:59
Intake Total 360 / 360 900 / 900
Balance 360 / 360 900 / 900
[2024-05-08] MEDS: LOPRESSOR 50 MG PO (21:05)
[2024-05-08] MEDS: ASPIR LOW (ENTERIC COATED) 81 MG PO (21:05)
[2024-05-08] MEDS: PEPCID 40 MG PO (21:05)
[2024-05-09 03:04] VITALS: BP 106/53
[2024-05-09 06:00] VITALS: BMI 23.4
[2024-05-09 07:25] VITALS: BP 117/62
[2024-05-09 07:36] LABS: Hematocrit 38.3 % (37.0-47.0); Hemoglobin 12.9 g/dL (12.0-16.0); Mean Corp Hgb Conc. 33.7 g/dL (33.0-37.0); Mean Corpuscular Hgb 31.2 pg (27.0-31.0); Mean Corpuscular Volume 92.5 fL (81.0-99.0); Mean Platelet Volume 10.2 fL (7.4-10.4); Platelet Count 191 10^3/uL (130-400); Red Blood Cell Count 4.14 10^6/uL (4.20-5.40); Red Cell Dist. Width 11.9 % (11.5-14.5); White Blood Cell Count 5.1 10^3/uL (4.8-10.8)
[2024-05-09 08:15] LABS: Blood Urea Nitrogen 22 mg/dl (7-17); Calcium 9.6 mg/dl (8.4-10.2); Carbon Dioxide 32 mmol/L (22-30); Chloride 101 mmol/L (98-107); Estimated Creatinine Clearance 45 ml/min; Glucose 86 mg/dl (70-99); Potassium 4.2 mmol/L (3.5-5.1); Sodium 139 mmol/L (135-145); eGFR > 60.00
[2024-05-09 08:21] LABS: Vitamin B1, Whole Blood 173 nmol/L (70-180)
[2024-05-09] MEDS: THERAGRAN 1 TABLET PO (08:27)
[2024-05-09] MEDS: SINEMET 25-100 1 TABLET PO ×2 (08:27→15:03)
[2024-05-09] MEDS: PROTONIX 40 MG PO (08:27)
[2024-05-09 09:07] LABS: Albumin 3.38 g/dL (3.75-5.01); Alpha 1 Globulin 0.29 g/dL (0.19-0.46); Alpha 2 Globulin 0.68 g/dL (0.48-1.05); SPEP IFE Reflex Not Done; Total Protein-Electrophoresis 5.6 g/dL (6.3-8.2)
--- NOTE | 2024-05-09 10:14 | CM ---
Addendum entered by Evonne Fritz 05/09/24 14:00:
Auth approved for 6 days. Beginning 05/09 NRD 05/14
Ref # [id number]
Ambulance auth ref # [id number]
Ambulance transport awaiting to be confirmed, requesting time is 4 pm
Original Note:
Pt is medically clear for d/c to SNF today
[facility] able to accept today per Shobha/admissions
Pt is a [employer] member so she is able to go to SNF w/ auth approval while admitted as OBS
Attempted call to pt's daughter to update, left vm
Spoke w/ hospitalist on the floor, agreeable to d/c today pending auth
Spoke w/ pt at bedside. Pt states she is agreeable to [facility]. Pt has concerns about rehab taking her money, CM reassured pt that her insurance will cover her rehab stay. CM discussed pt's safety and support at home following a previous fall where
she wasn't found for 4 days. Pt stated it was an accident and doesn't blame her children for not knowing. Pt stated she fell and her children didn't know until Tuesday. Per pt, she used to have a emergency response device but stated it
'drove her crazy' but will consider using again. CM discussed caregivers/[employer], pt agreeable to explore this as additional support in her home.
Pt appeared alert and oriented to CM's questions and concerns.
CM provided [facility] [employer] information to pt
Will need ambulance transport. Concerns for Lewy body dementia
IMM reviewed, copy on chart
[facility]
Report: [phone]
Fax:
Plan: [facility] pending auth
[2024-05-09 11:25] VITALS: BP 114/66; BP 118/72; PULSE 73; O2SAT 97
[2024-05-09 11:48] VITALS: BP 104/86
--- NOTE | 2024-05-09 13:07 | W.PN.HOSP.TC ---
Today's Communication/Plan
-
pending isppo
More than 30 minutes spent in discharge including
Final examination of the patient
Summarizing hospital stay
Instructions for continuing care to all relevant caregivers
Preparation of discharge records, prescriptions, and referral forms
Total time spent (in minutes): 33min
Assessment / Plan
Assessment / Plan
Ambulatory dysfunction with hallucination
-Neurology concern for potential Lewy body dementia features of Parkinson's
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
-Started on Sinemet
-Continue PT OT
-Outpatient neurology follow-up within 1 to 2 weeks
-Continue aspirin
COPD without exacerbation
-Stable
-Albuterol
GERD
-Continue Pepcid/PPI
ELLI
-Continue ferrous sulfate
Physical therapy/Occupational Therapy recommending SNF
-Case management consulted to begin disposition
--- She tells me that she has 2 children 1 that travels to [place] 3 weeks out of the year has 3 children and very busy that third daughter has a that has a heart transplant and is failing there is nothing for them to do her at this point now
going towards palliative
Plan for DC to SNF
CM aware she is cleared
Anticipated Discharge: Today
Subjective/Interval History
-
Date of Service: May 09, 2024
seen an dexamined
no new complaints
no acute overnight events
Objective Data
-
Labs:
Laboratory Results
05/09/24
07:21
WBC 5.1
Hgb 12.9
Hct 38.3
Plt Count 191
Sodium 139
Potassium 4.2
Chloride 101
Carbon Dioxide 32 H
BUN 22 H
Creatinine 0.7
Glucose 86
Calcium 9.6
Vital Signs:
Vital Signs
Temp Pulse Resp BP Pulse Ox
97.7 F 92 20 104/86 96
05/09/24 11:48 05/09/24 11:48 05/09/24 11:48 05/09/24 11:48 05/09/24 11:48
I&O
05/08/24 05/09/24 05/10/24
06:59 06:59 06:59
Intake Total 900 / 900 960 / 960
Balance 900 / 900 960 / 960
Physical Exam
-
General: Well Developed
HEENT: Normocephalic and Atraumatic
Respiratory: Clear to Auscultation
Cardiac: S1/S2
GI: Soft, Nontender, Nondistended and Normal Bowel Sounds
Skin: Warm and Dry
Neuro: Awake, Alert, Oriented and AO x 3
Psych: Calm
--- NOTE | 2024-05-09 13:09 | W.DCSUMMARY ---
Discharge Summary
Discharge Data
Date of Admission: 05/05/24
Date of Discharge: 05/09/24
-
Pending Results: No
Hospital Course
83y F with PMH significant for hypertension, COPD
Presented with complaints of weakness that has been progressively getting worse along with gait abnormalities. Also notes visual and auditory hallucinations. Evaluated by neurology believed there is a component of Lewy body dementia with
parkinsonian features. Started on Sinemet. Outpatient neurology follow-up outpatient PCP follow-up. Evaluated by physical therapy recommended SNF.
Brain Mri
IMPRESSION:
No acute intracranial abnormality noted.
Mild atrophy with sequelae of severe small vessel ischemic disease.
Discharge Plan
-
Patient Disposition: Prison/SNF
Discharge Diagnosis/Procedures: Dementia likley lewy body dementia per Neuro
Ambulatory dysfunction
Diet: As tolerated
Activity: As tolerated
Activity Restrictions/Additional Instructions:
Presented with complaints of weakness that has been progressively getting worse along with gait abnormalities. Also notes visual and auditory hallucinations. Evaluated by neurology believed there is a component of Lewy body dementia with
parkinsonian features. Started on Sinemet. Outpatient neurology follow-up outpatient PCP follow-up. Evaluated by physical therapy recommended SNF.
Brain Mri
IMPRESSION:
No acute intracranial abnormality noted.
Mild atrophy with sequelae of severe small vessel ischemic disease.
Referrals:
Matias Suarez MD [Family Provider] -
Prescriptions:
New
carbidopa-levodopa 25-100 mg Tablet
1 tab PO TID Qty: 90 0RF
Continued
famotidine 40 MG tablet
40 mg PO HS Qty: 0 0RF
Rx Instructions:
One tab by mouth at bedtime daily.
ferrous sulfate [FeroSul] 325 MG tablet
325 mg PO DAILY
multivitamin with folic acid [Tab-A-Nathaniel] 1 TABLET tablet
1 tab PO DAILY
[place]-3 Plus Vitamin D3 1 EACH capsule,delayed release(DR/EC)
1 ea PO BID
aspirin 81 MG tablet,delayed release (DR/EC)
81 mg PO HS Qty: 0 0RF
Rx Instructions:
One tab by mouth daily.
metoprolol tartrate 50 MG tablet
50 mg PO HS Qty: 0 0RF
Rx Instructions:
One tab by mouth every evening.
acetaminophen 650 mg Tablet Extended Release
650 mg PO BID
omeprazole 40 MG capsule,delayed release(DR/EC)
40 mg PO DAILY
Discharge Orders:
Discharge Patient (As Directed); Ordered 05/09/24
Ordered By: Dmitriy Bryant
Discharge Date and Time
Print Language: [id number]
[2024-05-09 16:11] VITALS: BP 122/62
== END 2024-05-09 17:14 ==
LOC: 4 WEST ACU 23:53
PROVIDERS: Physician Assistant Medical; ADMITTING PHYSICIAN Hospitalist; ATTENDING PHYSICIAN Hospitalist; CONSULT PHYSICIAN Psychiatry & Neurology Neurology; EMERGENCY PHYSICIAN Student in an Organized Health Care Education/Training Program; FAMILY PHYSICIAN Internal Medicine
DX: R53.1 Weakness (principal); R26.2 Difficulty in walking, not elsewhere classified; R35.0 Frequency of micturition; R63.4 Abnormal weight loss; F02.82 Dementia in other diseases classified elsewhere, unspecified severity, with psychotic disturbance; G20.C Parkinsonism, unspecified; R44.1 Visual hallucinations; R13.10 Dysphagia, unspecified; I11.0 Hypertensive heart disease with heart failure; K21.9 Gastro-esophageal reflux disease without esophagitis; E78.5 Hyperlipidemia, unspecified; F41.1 Generalized anxiety disorder; M19.90 Unspecified osteoarthritis, unspecified site; E78.00 Pure hypercholesterolemia, unspecified; K44.9 Diaphragmatic hernia without obstruction or gangrene; I50.9 Heart failure, unspecified; I67.82 Cerebral ischemia; G31.9 Degenerative disease of nervous system, unspecified; F32.A Depression, unspecified; J43.9 Emphysema, unspecified; Z66 Do not resuscitate; Z60.2 Problems related to living alone; Z60.8 Other problems related to social environment; Z91.81 History of falling; Z85.828 Personal history of other malignant neoplasm of skin; Z86.73 Personal history of transient ischemic attack (TIA), and cerebral infarction without residual deficits; Z79.82 Long term (current) use of aspirin; Z88.1 Allergy status to other antibiotic agents; Z88.4 Allergy status to anesthetic agent; Z88.8 Allergy status to other drugs, medicaments and biological substances; Z11.52 Encounter for screening for COVID-19
CPT/HCPCS: 70551; 71046; 80048; 80053; 80061; 81003; 82550; 82607; 82746; 84155; 84165; 84425; 84443; 85025; 85027; 85652; 87502; 87811; 93005; 97116; 97162; 97166; 97535; 99284; G0378

== ENCOUNTER → 2024-05-14 10:26 | Outpatient (REF) | payer OTHER, SELFPAY ==
[2024-05-14 11:14] LABS: Hematocrit 37.2 % (37.0-47.0); Hemoglobin 12.2 g/dL (12.0-16.0); Mean Corp Hgb Conc. 32.8 g/dL (33.0-37.0); Mean Corpuscular Hgb 31.1 pg (27.0-31.0); Mean Corpuscular Volume 94.9 fL (81.0-99.0); Mean Platelet Volume 10.7 fL (7.4-10.4); Platelet Count 201 10^3/uL (130-400); Red Blood Cell Count 3.92 10^6/uL (4.20-5.40); Red Cell Dist. Width 12.2 % (11.5-14.5); White Blood Cell Count 5.2 10^3/uL (4.8-10.8)
[2024-05-14 11:31] LABS: Blood Urea Nitrogen 20 mg/dl (7-17); Calcium 9.1 mg/dl (8.4-10.2); Carbon Dioxide 29 mmol/L (22-30); Chloride 104 mmol/L (98-107); Glucose 84 mg/dl (70-99); Potassium 3.8 mmol/L (3.5-5.1); Sodium 140 mmol/L (135-145); eGFR > 60.00
== END ==
LOC: OLABP 10:26
PROVIDERS: ATTENDING PHYSICIAN Family Medicine
DX: K21.9 Gastro-esophageal reflux disease without esophagitis (principal); D50.9 Iron deficiency anemia, unspecified; I10 Essential (primary) hypertension; E78.5 Hyperlipidemia, unspecified; F03.90 Unspecified dementia, unspecified severity, without behavioral disturbance, psychotic disturbance, mood disturbance, and anxiety; Z86.73 Personal history of transient ischemic attack (TIA), and cerebral infarction without residual deficits; M62.59 Muscle wasting and atrophy, not elsewhere classified, multiple sites; R26.2 Difficulty in walking, not elsewhere classified; J44.9 Chronic obstructive pulmonary disease, unspecified
CPT/HCPCS: 36415; 80048; 85027

== ENCOUNTER 2024-05-28 15:33 | Emergency (ER) | payer OTHER, SELFPAY ==
--- NOTE | 2024-05-28 15:51 | ED.GENMED ---
ED Provider Triage
<Alexandro Langford Jr., PA-C - Last Filed: 05/28/24 15:54>
-
Patient seen by provider in Triage?: Seen in Triage
Attestation: A medical screening examination has been initiated by a qualified medical provider. Based on the assessment performed at this time, it has been determined that an emergent medical condition may exist and the patient has been informed
that further medical evaluation and possible additional diagnostic testing may be needed.
HPI: 83-year-old female patient presenting from [facility] living recently in nursing facility. Recently diagnosed with Parkinson's having difficulty caring for self at home. Denies specific chest pain shortness of breath nausea
vomiting.
GENERAL: Alert , in no apparent distress
EYE: No visual abnormalities.
NECK: Trachea midline
ENT: No visible abnormalities.
LUNGS: No acute respiratory distress
NEUROLOGICAL: Alert and oriented
SKIN: Skin intact. No visible changes.
MUSCULOSKELETAL: Moving extremities normally
PSYCH: Normal and appropriate interaction.
This is a medical evaluation conducted in person to initiate diagnostic evaluation and provide initial therapeutics. Please see further documentation by the treating clinician.
History of Present Illness
<Alexandro Langford Jr., PA-C - Last Filed: 05/28/24 15:54>
General
Chief Complaint: Social Service Referral
Time Seen by Provider: 05/28/24 19:22
<Chapo Carter DO - Last Filed: 05/28/24 19:44>
General
Source: patient
Exam Limitations: none
Nursing documentation reviewed up to this point in time: agreed with
History of Present Illness
History of Present Illness:
83-year-old female presents emergency department due to confusion about medication. She missed taking her Sinemet, and was concerned about what to do. She denies any specific weakness, chest pain nausea or shortness of breath.
Past History
<Alexandro Langford Jr., PA-C - Last Filed: 05/28/24 15:54>
Past History
ED Past Medical History: Cancer (squamous cell carcinoma 2020), GERD, HTN, Hypercholesterolemia, Psychiatric (Gen anxiety D/O) and Other (TMJ syndrome, MVP, Emphysema, Osteoarthritis)
ED Past Surgical History: Appendectomy, Gynecological (Hysterectomy, bilateral tubal ligation) and Other (Multiple abdominal surgeries, root canal 2019)
Patient has exhibited threatening behavior?: No
PSI?: No
Social History
Tobacco: Non-smoker
Alcohol: None
Drug: None
Personal:
Living: alone
Family History
Family History: Other (reviewed and non-contributory)
<Chapo Carter DO - Last Filed: 05/28/24 19:44>
Past History
ED Past Medical History: Other (Parkinson's)
Review of Systems
<Chapo Carter DO - Last Filed: 05/28/24 19:44>
Review of Systems
Allergies reviewed?: Yes
All Other Systems: Not applicable
Constitutional: Reports no symptoms
EENT: Reports no symptoms
Respiratory: Reports no symptoms
Cardiac: Reports no symptoms
ABD/GI: Reports no symptoms
: Reports no symptoms
Musculoskeletal: Reports no symptoms
Skin: Reports no symptoms
Neurological: Reports weakness
Endocrine: Reports no symptoms
Hematologic/Lymphatic: Reports no symptoms
Psychiatric: Reports no symptoms
Phy Exam
<Chapo Carter DO - Last Filed: 05/28/24 19:44>
Physical Exam
Physical Exam:
Physical Exam
General: no apparent distress, not acutely ill
Neck: supple. no meningeal signs. normal posterior pharynx
Heart: s1/s2 regular rate and rhythm, no murmur. equal radial
pulses.
HEENT: Pupils equal round reactive to light, EOMI
Lungs: no acute respiratory distress. clear bilaterally
Abdomen: normal bowel sounds. not tender. no CVAT
Neuro: alert and oriented. no focal neurological deficits cranial nerves II through XII intact
Skin: no rash
Psychiatric: well kept. interactive and cooperative
Extremities: no edema. no calf tenderness. negative homans. good distal pulses
Course
<Alexandro Langford Jr., PA-C - Last Filed: 05/28/24 15:54>
Orders/Labs/Results
Orders:
Orders
05/28/24 15:53
EKG [Electrocardiogram (*1)] Urgent
Reason for Study: Fatigue / Weakness
EKG- Treatment ONCE
Urinalysis Reflex To Culture Urgent
Date Specimen was Collected: 05/28/24
Time Specimen was Collected: 16:42
05/28/24 16:01
CBC/With Diff [Complete Blood Count/With Diff] Urgent
CMP [Comprehensive Metabolic Panel] Urgent
Free T4 Urgent
TSH Reflex To Free T4 Urgent
05/28/24 16:04
Case Management Consult ONCE
Case Management Consult: Discharge Planning
05/28/24 19:34
Carbidopa/Levodopa [Sinemet 25-100] 1 tablet PO NOW STA
Abnormal Lab Results
05/28/24
16:01
MCH 31.4 H pg
(27.0-31.0)
Absolute Lymphs (auto) 1.0 L 10^3/uL
(1.2-3.4)
Neutrophils % 80.3 H %
(42.2-75.2)
Lymphocytes % 12.9 L %
(20.5-51.1)
Carbon Dioxide 31 H mmol/L
(22-30)
BUN 30 H mg/dl
(7-17)
Glucose 103 H mg/dl
(70-99)
TSH (Reflex) 0.33 L uIU/ml
(0.47-4.68)
05/28/24 16:01
05/28/24 16:01
Vital Signs
Initial and Last Documented VS:
Initial Vital Signs
Temp Pulse Resp BP Pulse Ox
98.2 F 82 16 147/80 98
05/28/24 15:52 05/28/24 15:52 05/28/24 15:52 05/28/24 15:52 05/28/24 15:52
Last Documented Vital Signs
Temp Pulse Resp BP Pulse Ox
98.2 F 50 18 140/64 97
05/28/24 15:52 05/28/24 17:37 05/28/24 17:37 05/28/24 17:37 05/28/24 17:37
<Chapo Carter, DO - Last Filed: 05/28/24 19:44>
Orders/Labs/Results
Orders:
Orders
05/28/24 15:53
EKG [Electrocardiogram (*1)] Urgent
Reason for Study: Fatigue / Weakness
EKG- Treatment ONCE
Urinalysis Reflex To Culture Urgent
Date Specimen was Collected: 05/28/24
Time Specimen was Collected: 16:42
05/28/24 16:01
CBC/With Diff [Complete Blood Count/With Diff] Urgent
CMP [Comprehensive Metabolic Panel] Urgent
Free T4 Urgent
TSH Reflex To Free T4 Urgent
05/28/24 16:04
Case Management Consult ONCE
Case Management Consult: Discharge Planning
05/28/24 19:34
Carbidopa/Levodopa [Sinemet 25-100] 1 tablet PO NOW STA
Abnormal Lab Results
05/28/24
16:01
MCH 31.4 H pg
(27.0-31.0)
Absolute Lymphs (auto) 1.0 L 10^3/uL
(1.2-3.4)
Neutrophils % 80.3 H %
(42.2-75.2)
Lymphocytes % 12.9 L %
(20.5-51.1)
Carbon Dioxide 31 H mmol/L
(22-30)
BUN 30 H mg/dl
(7-17)
Glucose 103 H mg/dl
(70-99)
TSH (Reflex) 0.33 L uIU/ml
(0.47-4.68)
05/28/24 16:01
05/28/24 16:01
Vital Signs
Initial and Last Documented VS:
Initial Vital Signs
Temp Pulse Resp BP Pulse Ox
98.2 F 82 16 147/80 98
05/28/24 15:52 05/28/24 15:52 05/28/24 15:52 05/28/24 15:52 05/28/24 15:52
Last Documented Vital Signs
Temp Pulse Resp BP Pulse Ox
98.2 F 50 18 140/64 97
05/28/24 15:52 05/28/24 17:37 05/28/24 17:37 05/28/24 17:37 05/28/24 17:37
<Chapo Carter, DO - Last Filed: 05/28/24 19:44>
MDM/Problems Addressed
Differential Diagnosis Includes:
CVA, Parkinson's
MDM/Problems Addressed:
83-year-old female with concern about medication for Parkinson's and caring for self. She did not take her Sinemet, and was unsure when to take it. She otherwise feels okay and like to go home.
Chronic conditions affecting care: Neurological disorder (Parkinson's)
Acute Exacerbation and/or Progression of Chronic Illness: Neurological disorder (Parkinson's)
<Chapo Carter, DO - Last Filed: 05/28/24 19:44>
*Pulse Oximetry
Patient hypoxic: no
*EKG
Interpreted by ED Provider?: Yes
EKG Intrepretation Date: 05/28/24
EKG Intrepretation Time: 16:07
Interpretation: abnormal
Comparison EKG: changes noted
Heart Rate: 76
Rate: normal
Rhythm: sinus
[place]: left axis deviation
Interval: normal interval
QRS Pattern: normal QRS
Ischemia: no ischemia
*Pulp Roller Interpretation
Rate: Pulp Roller- N/A
*Critical Care Note
Total Time (30-74mins, 75-104mins- exclusive of procedures): Not Applicable
Data Reviewed
Review of Other/Old Records Reveals: Progress Notes (Neurology saw on recent admission, suspected Parkinson's)
Source: records
<Chapo Carter, - Last Filed: 05/28/24 19:44>
Patient Management
Social determinants of health affecting care: Living situation and Poor social support
Escalation/DeEscalation of care consider admission/obs:
Admission not indicated
ED Attending Note
<Alexandro Langford Jr., PA-C - Last Filed: 05/28/24 15:54>
-
Portions of this chart may have been created with voice recognition software.� Occasional wrong word or��sound alike� substitutions may have occurred due to the inherent limitations of voice recognition software.
Discharge Plan
Departure
Patient Disposition: Home (Routine Discharge)
Date of Disposition: 05/28/24
Time of Disposition: 19:41
Patient with high blood pressure during this ER visit?: Yes
Condition: Good
Discharge Problem:
Parkinson disease
Instructions: Parkinson disease, BLOOD PRESSURE
Prescriptions:
No Action
famotidine 40 MG tablet
40 mg PO HS Qty: 0 0RF
Rx Instructions:
One tab by mouth at bedtime daily.
ferrous sulfate [FeroSul] 325 MG tablet
325 mg PO DAILY
multivitamin with folic acid [Tab-A-Nathaniel] 1 TABLET tablet
1 tab PO DAILY
[place]-3 Plus Vitamin D3 1 EACH capsule,delayed release(DR/EC)
1 ea PO BID
aspirin 81 MG tablet,delayed release (DR/EC)
81 mg PO HS Qty: 0 0RF
Rx Instructions:
One tab by mouth daily.
metoprolol tartrate 50 MG tablet
50 mg PO HS Qty: 0 0RF
Rx Instructions:
One tab by mouth every evening.
acetaminophen 650 mg Tablet Extended Release
650 mg PO BID
omeprazole 40 MG capsule,delayed release(DR/EC)
40 mg PO DAILY
carbidopa-levodopa 25-100 mg Tablet
1 tab PO TID Qty: 90 0RF
Referrals:
Matias Suarez MD [Active] - Call in 1-3 days for appt
Interventions
Interventions:
*Risk Screen - Suicide Last Done: 05/28/24 15:55
*Neglect/Abuse Screening Last Done: 05/28/24 15:55
Discharge Date and Time
Print Language: CAPE VERDEAN
[2024-05-28 15:52] VITALS: BP 147/80
[2024-05-28 16:10] LABS: % Basophils 0.3 % (0-2); % Eosinophils 0.1 % (0-6); % Immature Granulocytes 0.3 % (0-0.5); % Lymphocytes 12.9 % (20.5-51.1); % Monocytes 6.1 % (1.7-9.3); % Neutrophils 80.3 % (42.2-75.2); Absolute Monocytes 0.5 10^3/uL (0.1-0.6); Absolute Neutrophils 6.4 10^3/uL (1.4-6.5); Hemoglobin 13.5 g/dL (12.0-16.0); Mean Corp Hgb Conc. 33.8 g/dL (33.0-37.0); Mean Corpuscular Hgb 31.4 pg (27.0-31.0); Mean Platelet Volume 10.1 fL (7.4-10.4); Nucleated Red Blood Cells % 0 %; Platelet Count 249 10^3/uL (130-400); Red Cell Dist. Width 12.7 % (11.5-14.5)
[2024-05-28 16:21] LABS: ALT (SGPT) < 10 U/L (0-35); AST (SGOT) 27 U/L (14-36); Albumin 4.3 g/dl (3.5-5.0); Alkaline Phosphatase 64 U/L (38-126); Blood Urea Nitrogen 30 mg/dl (7-17); Calcium 9.7 mg/dl (8.4-10.2); Carbon Dioxide 31 mmol/L (22-30); Chloride 99 mmol/L (98-107); Glucose 103 mg/dl (70-99); Potassium 4.7 mmol/L (3.5-5.1); Sodium 135 mmol/L (135-145); Total Bilirubin 0.8 mg/dl (0.2-1.3); Total Protein 6.7 g/dl (6.3-8.2); eGFR > 60.00
[2024-05-28 16:52] LABS: TSH Reflex To Free T4 0.33 uIU/ml (0.47-4.68)
[2024-05-28 17:21] LABS: Free T4 1.57 ng/dl (0.78-2.19)
[2024-05-28 17:37] VITALS: BP 140/64
[2024-05-28 20:00] VITALS: BP 144/64
[2024-05-28] MEDS: SINEMET 25-100 1 TABLET PO (20:07)
[2024-05-29 02:58] VITALS: BP 109/63
== END 2024-05-29 03:09 | disposition home or self-care (01) ==
LOC: EMR 15:33
PROVIDERS: Physician Assistant; EMERGENCY PHYSICIAN Emergency Medicine; FAMILY PHYSICIAN Family Medicine
DX: G20.A1 Parkinson's disease without dyskinesia, without mention of fluctuations (principal); K21.9 Gastro-esophageal reflux disease without esophagitis; I10 Essential (primary) hypertension; E78.00 Pure hypercholesterolemia, unspecified; I49.1 Atrial premature depolarization; J43.9 Emphysema, unspecified; M19.90 Unspecified osteoarthritis, unspecified site; Z90.49 Acquired absence of other specified parts of digestive tract; Z90.710 Acquired absence of both cervix and uterus
CPT/HCPCS: 99283; 80053; 84439; 84443; 85025; 93005

== ENCOUNTER 2024-08-28 18:24 | Observation (INO) | payer OTHER, SELFPAY ==
[2024-08-28] VITALS (9 sets, daily range): BP systolic 134–157; BP diastolic 69–126; BMI 21.2
--- NOTE | 2024-08-28 14:50 | ED.GENMED ---
History of Present Illness
General
Chief Complaint: Failure to Thrive
Source: patient and ambulance crew
Time Seen by Provider: 08/28/24 14:37
History of Present Illness
History of Present Illness:
84yoF with a history of Parkinson's disease, recently diagnosed Lewy body dementia, COPD, and anemia presenting via EMS for evaluation of failure to thrive. Patient currently resides at [facility] and lives independently. She apparently has not
been eating and has not taken her medications over the past few days. She also has not been getting out of bed. She has been having visual hallucinations and has been seeing bugs crawling. She currently reports nausea. She is otherwise
asymptomatic and denies any fevers, chest pain, shortness of breath, abdominal pain, difficulty urinating, or recent falls.
Past History
Past History
ED Past Medical History: Cancer (squamous cell carcinoma 2020), GERD, HTN, Hypercholesterolemia, Psychiatric (Gen anxiety D/O), Other (TMJ syndrome, MVP, Emphysema, Osteoarthritis) and Other (Parkinson's)
ED Past Surgical History: Appendectomy, Gynecological (Hysterectomy, bilateral tubal ligation) and Other (Multiple abdominal surgeries, root canal 2019)
Patient has exhibited threatening behavior?: No
PSI?: No
Social History
Tobacco: Non-smoker
Alcohol: None
Drug: None
Personal:
Living: alone
Family History
Family History: Other (reviewed and non-contributory)
Phy Exam
General Physical Exam
General Presentation: well appearing
General age: appears stated age
General Skin: warm and dry
General Habitus: elderly
General Mental: alert
ENT Exam
ENT Exam: normocephalic
Cardiovascular Exam
Cardiovascular Exam: regular rate/rhythm
Pulmonary Exam
Pulmonary Exam: lungs clear, no respiratory distress, no rales, no crackles and no rhonchi
Gastrointestinal Exam
Gastrointestinal Exam: non tender, soft and non distended
Neurological Exam
Neurological Exam: alert and other (Patient stated that she saw a large black bug crawling on the wall during exam)
Skin Exam
Skin Exam: warm/dry
Psychiatric Exam
Psychiatric Exam: normal mood/affect
Course
Orders/Labs/Results
Orders:
Orders
08/28/24 14:49
Electrocardiogram (*1) Urgent
Reason for Study: Fatigue / Weakness
EKG- Treatment ONCE
08/28/24 14:50
CT Head W/o Iv Contrast Urgent
Comment:
Reason For Exam: AMS
0.9% Sodium Chloride 500 ml [Nss] 500 ml IV BOLUS
08/28/24 14:57
Complete Blood Count/With Diff Urgent
Comprehensive Metabolic Panel Urgent
Magnesium Urgent
Total CK [Creatine Phosphokinase] Urgent
Urinalysis Reflex To Culture Urgent
Date Specimen was Collected: 08/28/24
Time Specimen was Collected: 14:51
Urine Microscopic Reflex Cult Urgent
08/28/24 Dinner
Regular
At Your Request: Limited Participation
08/28/24 18:02
Admit/Transfer Patient As Directed
Co-Sign Provider:
Level of Care: Observation services
Assign to:: Medical/Surgical
Physician / Group: Edgar
Diagnosis: Failure to thrive
PRN Pain Medication Management As Directed
May give lesser potent ordered pain med per pt: Yes
preference::
Protocol:: Medication orders for pain may be administered in a
manner that supports deferring to patient preference
when the pt is:
- Requesting an ordered lesser potent pain medication.
Least to most potent pain medications are defined
as: acetaminophen < NSAID < tramadol < opioids
(morphine, oxycodone, hydromorphone).
- Requesting a lesser dose of the same medication IF
ORDERED.
- Requesting a less intrusive route of administration
if both routes are prescribed by the provider (PO <
IV).
08/28/24 18:03
Code Status As Directed
Resuscitation Status: Do not resuscitate
Reached after discussion with pt or family/Healthcare POA: Yes
DNR Bracelet Application ONCE
08/28/24 21:11
Acetaminophen [Tylenol] 650 mg PO Q4HPRN PRN
Bisacodyl [Dulcolax] 10 mg RECTAL [id number] PRN
Dextrose 5%/0.45%Sodchl 1000ML [D5/0.45%NaCl] 1,000 ml IV 100 mls/hr
Docusate W/Senna [Senokot-S] 1 tablet PO BIDPRN PRN
Ondansetron Injectable [Zofran] 4 mg IV Q6HPRN PRN
Polyethylene Glycol Powder [Miralax] 17 grams PO DAILYPRN PRN
08/28/24 21:11
Activity As Directed
Activity Level: With Assistance
Vital Signs As Directed
Frequency: Per unit guidelines
Ot Eval And Treat Routine
Pt Eval And Treat Routine
Activity Level: With Assistance
DX Deep Vein Thrombosis Video Routine
08/28/24 22:00
Aspirin Low Dose EC [Aspir Low (Enteric Coated)] 81 mg PO HS
Carbidopa/Levodopa [Sinemet 25-100] 1 tablet PO TID
Famotidine [Pepcid] 20 mg PO HS
Quetiapine Fumarate [Seroquel] 25 mg PO HS
08/29/24 08:00
Amantadine [Symmetrel] 100 mg PO DAILY
Pantoprazole [Protonix] 40 mg PO DAILY
08/29/24 18:00
Enoxaparin Sodium [Lovenox] 40 mg SC QPM
Abnormal Lab Results
08/28/24
14:57
WBC 4.7 L 10^3/uL
(4.8-10.8)
BUN 22 H mg/dl
(7-17)
Urine Ketones 3+ A
(Negative)
Urine Albumin (Reflex) 2+ A
(Neg - Trace)
08/28/24 14:57
08/28/24 14:57
Vital Signs
Initial and Last Documented VS:
Initial Vital Signs
Temp Pulse Resp BP Pulse Ox
98 F 87 13 155/80 96
08/28/24 14:37 08/28/24 14:37 08/28/24 14:37 08/28/24 14:37 08/28/24 14:37
Last Documented Vital Signs
Temp Pulse Resp BP Pulse Ox
98.6 F 70 18 156/77 97
08/28/24 21:42 08/28/24 21:42 08/28/24 21:42 08/28/24 21:42 08/28/24 21:42
MDM/Problems Addressed
Differential Diagnosis Includes:
84yoF here with failure to thrive. She has not been eating, taking meds, or getting out of bed the past few days. Currently lives alone. Hx of Parkinson's and Lewy body dementia. She is mildly hypertensive with otherwise normal vital signs. She is
nontoxic-appearing. Patient having visual hallucinations during exam and seeing bugs crawling on the wall. Differential diagnosis includes but is not limited to: Dehydration, LEAH, failure to thrive, ambulatory dysfunction
Initial ED plan: Check CBC, CMP, magnesium, CK, UA, EKG, and chest x-ray. IV fluid bolus.
*EKG
Interpreted by ED Provider?: Yes
EKG Intrepretation Date: 08/28/24
Heart Rate: 86
Rate: normal
Rhythm: sinus and PAC's
[place]: left axis deviation
QRS Pattern: normal QRS
Ischemia: no ischemia
*Critical Care Note
Total Time (30-74mins, 75-104mins- exclusive of procedures): Not Applicable
Update Note
Update Note:
Labs overall unremarkable including normal electrolytes, renal function, and CK. UA with 3+ ketones suggesting dehydration. No signs of infection on urinalysis. Head CT negative for acute findings. Case management is gone for the day. Will
admit to ensure safe discharge plan and likely placement.
ED Attending Note
-
Portions of this chart may have been created with voice recognition software.� Occasional wrong word or��sound alike� substitutions may have occurred due to the inherent limitations of voice recognition software.
Discharge Plan
Departure
Patient Disposition: Admit
Date of Disposition: 08/28/24
Time of Disposition: 17:21
Presentation/result/management discussed w/ accepting MD/DO: Hospitalist
Discharge Problem:
Adult failure to thrive
Interventions
Interventions:
*Risk Screen - Suicide Last Done: 08/28/24 14:37
*General Assessment Last Done: 08/28/24 14:37
*Neglect/Abuse Screening Last Done: 08/28/24 14:37
*ED- Fall Risk Assessment Last Done: 08/28/24 14:37
*ED COVID-19 Vaccine History Last Done: 08/28/24 14:37
*Nursing Disposition Last Done: 08/28/24 21:01
Discharge Date and Time
Discharge Date/Time: 08/28/24 21:02
[2024-08-28] MEDS: NSS 500 IV (15:06)
[2024-08-28 15:07] LABS: % Basophils 0.2 % (0-2); % Eosinophils 0.8 % (0-6); % Lymphocytes 28.9 % (20.5-51.1); % Monocytes 7.8 % (1.7-9.3); % Neutrophils 62.3 % (42.2-75.2); Absolute Lymphocytes 1.4 10^3/uL (1.2-3.4); Absolute Monocytes 0.4 10^3/uL (0.1-0.6); Hematocrit 43.5 % (37.0-47.0); Hemoglobin 14.8 g/dL (12.0-16.0); Mean Corpuscular Hgb 30.8 pg (27.0-31.0); Mean Corpuscular Volume 90.6 fL (81.0-99.0); Mean Platelet Volume 10.3 fL (7.4-10.4); Nucleated Red Blood Cells % 0 %; Platelet Count 173 10^3/uL (130-400); Red Cell Dist. Width 11.7 % (11.5-14.5); White Blood Cell Count 4.7 10^3/uL (4.8-10.8)
[2024-08-28 15:09] LABS: Urine Albumin 2+ (Neg - Trace); Urine Bilirubin Negative (Negative); Urine Character Clear (Clear); Urine Color Yellow; Urine Glucose Negative (Negative); Urine Ketone 3+ (Negative); Urine Leukocyte Negative (Negative); Urine Nitrite Negative (Negative); Urine Occult Blood Negative (Negative); Urine Specific Gravity 1.025 (<1.030); Urine Urobilinogen Negative (Neg - 1+)
[2024-08-28 15:15] LABS: Urine Red Blood Cell 0-2 /HPF (0-2); Urine White Cell 0-2 /HPF (0-5)
[2024-08-28 15:24] LABS: ALT (SGPT) 11 U/L (0-35); AST (SGOT) 19 U/L (14-36); Alkaline Phosphatase 84 U/L (38-126); Blood Urea Nitrogen 22 mg/dl (7-17); Calcium 9.9 mg/dl (8.4-10.2); Carbon Dioxide 30 mmol/L (22-30); Chloride 106 mmol/L (98-107); Creatine Phosphokinase 35 U/L (30-135); Estimated Creatinine Clearance 46 ml/min; Glucose 91 mg/dl (70-99); Magnesium 1.8 mg/dl (1.6-2.3); Potassium 4.1 mmol/L (3.5-5.1); Sodium 143 mmol/L (135-145); Total Protein 6.4 g/dl (6.3-8.2); eGFR > 60.00
--- NOTE | 2024-08-28 16:30 | CM ---
Monitoring Tech received a call from Xenia Anguiano from [facility], phone # [phone]. Xenia was calling from patient's home
Reported that patient has Lewy Body Dementia and Parkinsons Disease; Failure to Thrive; not taking her medication; dehydrated
Xenia reported that patient was seen by Protective Services about 1 month ago; Patient cannot return to her apartment; family not involved
--- NOTE | 2024-08-28 17:40 | HPS.HSE ---
Family Physician
-
Family Physician: INTERVIEWE UNKNOWN - PT NOT
Chief Complaint
-
Failure to thrive
History of Present Illness
84 y/o F with PMHx:
Parkinson disease
Lewy body dementia
COPD
Chronic anemia
who p/w CC failure to thrive. The patient lives independently at [facility]. Over the last few days she has had poor oral intake and has been unable to take her medications. Apparently she is been staying in bed. She reports having visual
hallucinations consisting of crawling bugs. She does report she has had some nausea. Denies any other acute complaints. ER is requested admission for placement.
Medical History
Past Medical History
Past Medical History: Reports Other (Parkinson disease, Lewy body, dementia, COPD, Chronic anemia)
Past Surgical History: Reports Other (N/A)
Social History
Tobacco: Non-smoker
Alcohol: None
Drug: None
Family History
Family History: Not pertinent
Allergies / Home Medications
Allergies reflects when Allergies were last updated in [facility].
Home Medications with original date entered in [facility]
Allergy/Medication List:
Allergies
Allergy/AdvReac Type Severity Reaction Status Date / Time
cat dander Allergy Unknown Unknown Verified 05/28/24 15:55
levofloxacin [From Levaquin] Allergy LOW Verified 05/28/24 15:55
BP,FAST
HR,DIZZINESS
spironolactone Allergy Unknown Verified 05/28/24 15:55
anesthesia med Allergy LOW Uncoded 05/28/24 15:55
BP,FAST
HR,DIZZINESS
Home Medications
aspirin 81 mg tablet,delayed release 81 mg PO HS Blood clot prevention/tx ##0 07/08/21
omeprazole 40 mg capsule,delayed release 40 mg PO DAILY 12/26/22
carbidopa 25 mg-levodopa 100 mg tablet 1 tab PO TID #90 tabs 05/09/24
amantadine HCl 100 mg capsule 100 mg PO DAILY 08/28/24
famotidine 20 mg tablet 40 mg PO HS 08/28/24
quetiapine 25 mg tablet 25 mg PO HS 08/28/24
Review of Systems
-
History Source: Patient
A 12 point ROS was completed and negative except as noted: Yes
Physical Exam
Vital Signs
Vital Signs
Temp Pulse Resp BP Pulse Ox
98 F 83 16 148/126 96
08/28/24 14:37 08/28/24 17:00 08/28/24 17:00 08/28/24 17:00 08/28/24 14:37
Physical Exam
General: Other (.)
Laboratory Results
-
08/28/24 14:57
08/28/24 14:57
Laboratory Results
Total Bilirubin 1.0 mg/dl (0.2-1.3) 08/28/24 14:57
AST 19 U/L (14-36) 08/28/24 14:57
ALT 11 U/L (0-35) 08/28/24 14:57
Alkaline Phosphatase 84 U/L (38-126) 08/28/24 14:57
Impression/Plan
-
Gen: NAD, AAOx3.
Eyes: EOMI, PERRLA, no scleral icterus.
Neck: supple.
ENMT: dry MM
CV: RRR, +S1/S2, no m/r/g.
Resp: CTAB, no rales, wheezes, or rhonchi.
Abd: +BS, soft, NT, ND
Skin: No rashes.
Neuro: CN 2-12 intact, non-focal.
Psych: Normal mood and affect.
CT brain: No acute intracranial abnormality noted. Stable chronic findings.
Failure to thrive:
-CT brain and labs unremarkable
-IVFs
-PT/OT
-CM
Other problems:
Parkinson disease: Cont Sinemet
Lewy body dementia: Cont amantadine/Seroquel
COPD
Chronic anemia, Hb normal
DNR: confirmed with pt in the ER
Lovenox
OBS
[2024-08-28] MEDS: D5/0.45%NACL 1000 IV (22:42)
[2024-08-28] MEDS: SEROQUEL 25 MG PO (22:42)
[2024-08-28] MEDS: ASPIR LOW (ENTERIC COATED) 81 MG PO (22:43)
[2024-08-28] MEDS: PEPCID PO (22:45)
[2024-08-28] MEDS: SINEMET 25-100 PO (22:45)
[2024-08-29 00:36] VITALS: BMI 21.2
[2024-08-29 08:00] VITALS: BP 127/62
--- NOTE | 2024-08-29 08:42 | W.PN.HOSP.TC ---
Today's Communication/Plan
-
d/c
Assessment / Plan
Assessment / Plan
Gen: NAD, Awake and alert
Eyes: EOMI, PERRLA, no scleral icterus.
Neck: supple.
CV: RRR, +S1/S2, no m/r/g.
Resp: remains CTAB, no rales, wheezes, or rhonchi.
Abd: +BS, soft, NT, ND
Skin: No rashes. R heel tender to palpation, no bony deformities
Neuro: CN 2-12 intact, non-focal.
Psych: Normal mood and affect.
CT brain: No acute intracranial abnormality noted. Stable chronic findings.
Failure to thrive:
-CT brain and labs unremarkable
-unclear why U/A was ordered but it is unremarkable
-has been on IVFs, stop IVFs
-PT/OT
-CM
R heel pain:
-check R foot X-ray
Other problems:
Parkinson disease: Cont Sinemet
Lewy body dementia: Cont amantadine/Seroquel
COPD
Chronic anemia, Hb normal
DNR: confirmed with pt in the ER
Lovenox
OBS
Medically cleared for d/c, case management aware.
Anticipated Discharge: Today
Subjective/Interval History
-
Date of Service: August 29, 2024
No new complaints other than the right heel pain.
Objective Data
-
Vital Signs:
Vital Signs
Temp Pulse Resp BP Pulse Ox
97.9 F 60 16 127/62 95
08/29/24 08:00 08/29/24 08:00 08/29/24 08:00 08/29/24 08:00 08/29/24 08:00
[2024-08-29 09:20] VITALS: BP 134/80; BP 143/69; PULSE 71; O2SAT 98
[2024-08-29 09:21] VITALS: BP 134/80; BP 143/69; PULSE 71; O2SAT 98
[2024-08-29] MEDS: D5/0.45%NACL IV (10:01)
[2024-08-29] MEDS: SYMMETREL PO ×2 (10:01→15:51)
[2024-08-29] MEDS: PROTONIX PO ×2 (10:01→15:51)
[2024-08-29] MEDS: SINEMET 25-100 PO ×5 (10:01→21:58)
[2024-08-29 10:10] VITALS: BMI 20.2
--- NOTE | 2024-08-29 11:09 | CM ---
Reviewed the chart notes and spoke with the patient's daughter Amalia via telephone. Had patient's son French ([phone]) added to contact list. Discussed with the daughter the patient is admitted under observational status. ISSA explained and
copy left at bedside.
The patient resided in [facility] apartments alone. Patient has a rolling walker and cane. Patient has been to [facility] and [facility] in the past. Patient's daughter explained to CM that the patient is unable to return to her independent apartment due
to safety concerns with her cognitive status. Daughter requesting jail placement. Per daughter, request [facility] referral be sent. Referral sent in [facility]. Explained to daughter if they are unable to accept, will need additional names of
SNFs for placement. CM continues to be available to patient/family and is monitoring medical plan for needs at discharge.
Plan: Discharge to a SNF for manager long term care care once a bed is secured. Family aware they will most likely need to complete financial application.
[2024-08-29 15:00] VITALS: BP 145/66
[2024-08-29 15:49] VITALS: BMI 20.2
--- NOTE | 2024-08-29 15:53 | PTCARENOTE ---
Patient refused meds during shift stating 'I haven't been taking my medication for awhile, its all sitting on my kitchen table, if I start now my schedule will get messed up'.
[2024-08-29] MEDS: LOVENOX 40 MG SC (17:05)
[2024-08-29] MEDS: ASPIR LOW (ENTERIC COATED) 81 MG PO (21:57)
[2024-08-29] MEDS: PEPCID PO (21:57)
[2024-08-29] MEDS: SEROQUEL 25 MG PO (21:58)
[2024-08-29 23:50] VITALS: BP 93/55
[2024-08-30 00:58] VITALS: BP 137/71
[2024-08-30 05:58] VITALS: BMI 20.4
[2024-08-30 07:30] VITALS: BP 141/73
--- NOTE | 2024-08-30 09:59 | W.PN.HOSP.TC ---
Today's Communication/Plan
-
d/c
Assessment / Plan
Assessment / Plan
Gen: NAD, Awake and alert
Eyes: EOMI, PERRLA, no scleral icterus.
Neck: supple.
CV: RRR, +S1/S2, no m/r/g.
Resp: remains CTAB, no rales, wheezes, or rhonchi.
Abd: +BS, soft, NT, ND
Skin: No rashes. R heel tender to palpation, no bony deformities
Neuro: CN 2-12 intact, non-focal.
Psych: Normal mood and affect.
CT brain: No acute intracranial abnormality noted. Stable chronic findings.
R foot Xray: No acute osseous abnormality. Small plantar calcaneal spur.
Failure to thrive:
-CT brain and labs unremarkable
-unclear why U/A was ordered but it is unremarkable
-was on IVFs overnight the first night of admission
-PT/OT
-CM
R heel pain:
-R foot X-ray unremarkable
Other problems:
Parkinson disease: Cont Sinemet
Lewy body dementia: Cont amantadine/Seroquel
COPD
Chronic anemia, Hb normal
DNR: confirmed with pt in the ER
Lovenox
OBS
Remains medically cleared for d/c, case management aware.
Anticipated Discharge: Today
Subjective/Interval History
-
Date of Service: August 30, 2024
Patient currently disoriented. Offers no new complaints.
Objective Data
-
Vital Signs:
Vital Signs
Temp Pulse Resp BP Pulse Ox
97.9 F 75 17 141/73 96
08/30/24 07:30 08/30/24 07:30 08/30/24 07:30 08/30/24 07:30 08/30/24 07:30
I&O
08/29/24 08/30/24 08/31/24
06:59 06:59 06:59
Intake Total 480 / 480
Balance 480 / 480
[2024-08-30] MEDS: PROTONIX 40 MG PO (10:18)
[2024-08-30] MEDS: SINEMET 25-100 1 TABLET PO ×2 (10:18→17:46)
[2024-08-30] MEDS: SYMMETREL 100 MG PO (10:18)
--- NOTE | 2024-08-30 13:18 | CM ---
Reviewed the chart notes. Per Antelmo at [facility], no beds. Additional referral sent to area SNFs. CM continues to be available to patient/family and is monitoring medical plan for needs at discharge.
Plan: Discharge to SNF for short term to correction once a bed is secured and an auth is obtained.
[2024-08-30 15:35] VITALS: BP 119/66
[2024-08-30] MEDS: LOVENOX 40 MG SC (17:46)
[2024-08-30] MEDS: SEROQUEL 25 MG PO (21:46)
[2024-08-30] MEDS: ASPIR LOW (ENTERIC COATED) 81 MG PO (21:46)
[2024-08-30] MEDS: SINEMET 25-100 PO ×2 (21:46→22:35)
[2024-08-30] MEDS: PEPCID PO ×2 (21:47→22:35)
[2024-08-30 23:47] VITALS: BP 102/78
[2024-08-31 06:00] VITALS: BMI 20.5
--- NOTE | 2024-08-31 07:24 | W.PN.HOSP.TC ---
Today's Communication/Plan
-
d/c
Assessment / Plan
Assessment / Plan
Gen: NAD, Awake and alert
Eyes: EOMI, PERRLA, no scleral icterus.
Neck: supple.
CV: remains RRR, +S1/S2, no m/r/g.
Resp: Continues to remain CTAB, no rales, wheezes, or rhonchi.
Abd: +BS, soft, NT, ND
Skin: No rashes.
Neuro: CN 2-12 intact, non-focal.
Psych: Normal mood and affect.
CT brain: No acute intracranial abnormality noted. Stable chronic findings.
R foot Xray: No acute osseous abnormality. Small plantar calcaneal spur.
Failure to thrive:
-CT brain and labs unremarkable
-unclear why U/A was ordered but it is unremarkable
-was on IVFs overnight the first night of admission
-PT/OT
-CM
Other problems:
R heel pain: R foot X-ray unremarkable
Parkinson disease: Cont Sinemet
Lewy body dementia: Cont amantadine/Seroquel
COPD
DNR: confirmed with pt in the ER
Lovenox
OBS
Remains medically cleared for d/c since admission (admitted for CM eval and placement), case management aware.
Anticipated Discharge: Today
Subjective/Interval History
-
Date of Service: August 31, 2024
No new complaints. Denies chest pain or shortness of breath.
Objective Data
-
Vital Signs:
Vital Signs
Temp Pulse Resp BP Pulse Ox
97.6 F 73 16 102/78 96
08/30/24 23:47 08/30/24 23:47 08/30/24 23:47 08/30/24 23:47 08/30/24 23:47
I&O
08/30/24 08/31/24 09/01/24
06:59 06:59 06:59
Intake Total 480 / 480 600 / 600
Balance 480 / 480 600 / 600
[2024-08-31 07:39] VITALS: BP 120/59
[2024-08-31] MEDS: SYMMETREL 100 MG PO (10:32)
[2024-08-31] MEDS: PROTONIX 40 MG PO (10:32)
[2024-08-31] MEDS: SINEMET 25-100 1 TABLET PO ×3 (10:32→21:52)
[2024-08-31] MEDS: TYLENOL 650 MG PO (10:38)
--- NOTE | 2024-08-31 15:39 | CM ---
Addendum entered by Amanda León RN 08/31/24 17:00:
Attempted to obtain auth; on hold for 40 minutes with message saying you approximate hold time is between 5-10mins. PT/OT notes in at 16:26 and 16:28.
Original Note:
Reviewed the chart notes and spoke with the patient's daughter Amalia via telephone. Family selected [facility]. Waiting on PT/OT to see patient today to start auth.
[facility] NPI# [id number]
Dr. Johansen NPI# [id number]
Plan: Discharge to [facility] once auth obtained.
[2024-08-31 15:43] VITALS: BP 130/71
[2024-08-31 16:26] VITALS: BP 115/64; PULSE 83; O2SAT 96
[2024-08-31 16:28] VITALS: BP 115/64; PULSE 84; O2SAT 96
[2024-08-31] MEDS: LOVENOX 40 MG SC (17:09)
[2024-08-31] MEDS: ASPIR LOW (ENTERIC COATED) 81 MG PO (21:52)
[2024-08-31] MEDS: SEROQUEL 25 MG PO (21:52)
[2024-08-31] MEDS: PEPCID 20 MG PO (21:53)
[2024-08-31 23:21] VITALS: BP 108/66
[2024-09-01 07:46] VITALS: BP 127/63
[2024-09-01] MEDS: SYMMETREL 100 MG PO (09:23)
[2024-09-01] MEDS: SINEMET 25-100 1 TABLET PO ×2 (09:23→15:34)
[2024-09-01] MEDS: PROTONIX 40 MG PO (09:24)
[2024-09-01 09:31] LABS: Blood Urea Nitrogen 23 mg/dl (7-17); Calcium 9.3 mg/dl (8.4-10.2); Carbon Dioxide 31 mmol/L (22-30); Chloride 106 mmol/L (98-107); Estimated Creatinine Clearance 38 ml/min; Glucose 79 mg/dl (70-99); Iron 81 ug/dl (37-170); Potassium 3.6 mmol/L (3.5-5.1); Sodium 140 mmol/L (135-145); eGFR > 60.00
[2024-09-01 09:40] LABS: Percent Saturation 34 % (20-50); Total Iron Binding Capacity 232 ug/dl (265-497)
[2024-09-01 10:17] LABS: Vitamin B12 500 pg/ml (239-931)
[2024-09-01 11:10] VITALS: BP 148/82
[2024-09-01 11:15] LABS: Glucose - Point of Care 118 mg/dl (70-99)
--- NOTE | 2024-09-01 11:45 | W.PN.HOSP.TC ---
Addendum entered and electronically signed by Lakhwinder Carroll MD 09/02/24 07:46:
Dictation- [id number]
Original Note:
Today's Communication/Plan
-
Waiting for DC
Assessment / Plan
Assessment / Plan
84-year-old admitted because of poor p.o. intake and unable to take medicines and laying in bed. Also reported visual hallucinations
Confused, pleasant
CVS: S1-S2 normal
Chest: CTA B/L
Abdomen: Soft, NT Bowel sounds present
Extremities: No edema
# Adult failure to thrive
CT of the head and labs are unremarkable
Possibly progression of Parkinson disease/Lewy body dementia
# Parkinson disease-continue Sinemet, amantadine
# Lewy body dementia-continue Seroquel for symptoms
# COPD-stable
# Chronic anemia-hemoglobin stable
# History of CVA-chronic right cerebellar infarct-continue aspirin
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
# Hyperlipidemia-not on any medicines currently
# Chronic HFPEF-09/23/2022-normal biventricular size and systolic function. EF 55%. Moderate MR. Mild to moderate AI
# History of DVT remote
# GERD/hiatal hernia-continue Pepcid and PPI
# Ex-smoker
# DVT prophylaxis-Lovenox
# DNR
D/W Case management
Anticipated Discharge: Today
Subjective/Interval History
-
Date of Service: September 01, 2024
Objective Data
-
Labs:
Laboratory Results
09/01/24
08:26
Sodium 140
Potassium 3.6
Chloride 106
Carbon Dioxide 31 H
BUN 23 H
Creatinine 0.8
Glucose 79
Calcium 9.3
Vital Signs:
Vital Signs
Temp Pulse Resp BP Pulse Ox
97.8 F 67 16 127/63 97
09/01/24 07:46 09/01/24 07:46 09/01/24 07:46 09/01/24 07:46 09/01/24 07:46
I&O
08/31/24 09/01/24 09/02/24
06:59 06:59 06:59
Intake Total 600 / 600 480 / 480
Balance 600 / 600 480 / 480
[2024-09-01] MEDS: SENOKOT 17.2 MG PO (12:32)
[2024-09-01] MEDS: MILK OF MAGNESIA 30 ML PO (12:32)
--- NOTE | 2024-09-01 15:12 | W.DS.TRANS ---
DC Summary - Medical Van Driver
-
Discharge Instructions:
Sleep Apnea Risk Low
Discharge Diagnosis/Procedures Failure to thrive
Parkinson disease
Lewy body dementia
COPD
Chronic anemia
History of CVA
Hyperlipidemia
Chronic HFpEF
GERD/hiatal hernia
Ex-smoker
Diet As tolerated
Additional Diets ensure BID
Activity As tolerated
Driving Restrictions No driving
Other Services PT,OT
Instructions:
Stand-Alone Forms:
Changes to Home Medications: Yes
Discharge Medications:
DC Medications w/original date entered in [employer] [facility]
aspirin 81 mg tablet,delayed release 81 mg PO HS Blood clot prevention/tx ##0 07/08/21
omeprazole 40 mg capsule,delayed release 40 mg PO DAILY GERD 12/26/22
amantadine HCl 100 mg capsule 100 mg PO DAILY PARKINSONS 08/28/24
quetiapine 25 mg tablet 25 mg PO HS Mental Health/Anxiety 08/28/24
carbidopa 25 mg-levodopa 100 mg tablet 1 tab PO TID parkinson #90 tabs 09/01/24
famotidine 20 mg tablet 20 mg PO HS Gastrointestinal Issue #0 tabs 09/01/24
polyethylene glycol 3350 17 gram oral powder packet 17 g PO DAILY Constipation #0 ea 09/01/24
sennosides 8.6 mg tablet (Perla-pardeep) 17.2 mg (2 x 8.6 mg) PO HS Constipation #0 tabs 09/01/24
Home Medication Changes
decreased Pepcid
new
polyethylene glycol 3350 17 gram oral powder packet 17 g PO DAILY Constipation #0 ea 09/01/24
sennosides 8.6 mg tablet (Perla-pardeep) 17.2 mg (2 x 8.6 mg) PO HS Constipation #0 tabs 09/01/24
Pending Results: No
--- NOTE | 2024-09-01 15:20 | CM ---
Addendum entered by Nohemy Garcia 09/01/24 16:30:
Phone- [phone]
Fax- [phone]
Original Note:
CM reviewed pt with Dr Carroll- ready for dc
Bed confirmed at [facility] with Che/admissions
Auth obtained for both SNF and BLS through [facility]
Call to dtr with update
Medical necessity completed and BLS scheduled with [facility]
SNF auth# [id number] 5 days 09/01-09/05 [facility] (p) [phone]
[facility] #[id number] [address], good for 5 days, expires 09/05
Pt has 72 hours to admit under existing auth
Will need to call with if SOC date changes
Discharge Disposition- [facility] via BLS ([phone] pickup)
waiting on report numbers
[2024-09-01] MEDS: DULCOLAX 10 MG RECTAL (15:34)
[2024-09-01 15:50] VITALS: BP 148/69
[2024-09-01] MEDS: LOVENOX 40 MG SC (17:42)
[2024-09-01 19:00] VITALS: BP 116/72
[2024-09-01] MEDS: SENOKOT PO (20:07)
== END 2024-09-01 21:13 ==
LOC: 2 NORTH 18:24
PROVIDERS: Physician Assistant; ADMITTING PHYSICIAN Internal Medicine; ATTENDING PHYSICIAN Hospitalist; EMERGENCY PHYSICIAN Student in an Organized Health Care Education/Training Program; FAMILY PHYSICIAN Internal Medicine
DX: R62.7 Adult failure to thrive (principal); G31.83 Neurocognitive disorder with Lewy bodies; F02.82 Dementia in other diseases classified elsewhere, unspecified severity, with psychotic disturbance; J43.9 Emphysema, unspecified; D64.9 Anemia, unspecified; R11.0 Nausea; K21.9 Gastro-esophageal reflux disease without esophagitis; M19.90 Unspecified osteoarthritis, unspecified site; E78.00 Pure hypercholesterolemia, unspecified; R53.1 Weakness; I50.32 Chronic diastolic (congestive) heart failure; I11.0 Hypertensive heart disease with heart failure; I34.1 Nonrheumatic mitral (valve) prolapse; K44.9 Diaphragmatic hernia without obstruction or gangrene; M77.31 Calcaneal spur, right foot; I49.1 Atrial premature depolarization; F41.1 Generalized anxiety disorder; M26.629 Arthralgia of temporomandibular joint, unspecified side; Z90.49 Acquired absence of other specified parts of digestive tract; Z90.710 Acquired absence of both cervix and uterus; Z66 Do not resuscitate; Z88.4 Allergy status to anesthetic agent; Z88.1 Allergy status to other antibiotic agents; Z88.8 Allergy status to other drugs, medicaments and biological substances; Z86.718 Personal history of other venous thrombosis and embolism; Z87.891 Personal history of nicotine dependence; Z86.73 Personal history of transient ischemic attack (TIA), and cerebral infarction without residual deficits; Z60.2 Problems related to living alone
CPT/HCPCS: 70450; 73620; 80048; 80053; 81003; 81015; 82550; 82607; 82728; 82962; 83540; 83550; 83735; 85025; 87070; 93005; 96360; 97163; 97167; 97530; 97535; 99285; G0378